=== PATIENT | male | born 1955 | race Caucasian/White ===

== ENCOUNTER 2018-06-28 10:47 | Inpatient (IN) | payer MEDICARE, MEDICAID ==
[~2018-06-28] VITALS: Ht 175.3 cm; Wt 94.0 kg
[2018-06-28] MEDS ORDERED: normal saline 1000ML IV soln IV ONE (12:15)
[2018-06-28] MEDS ORDERED: vancomycin/NS 1 GM ADD-VANTAGE 250 ML X 1 DOSE IV ONE (12:25)
[2018-06-28 13:15] LABS: ALANINE AMINOTRANSFERASE 20 U/L (12-78); ALBUMIN 2.9 G/DL (3.4-5.0); ALBUMIN/GLOBULIN RATIO 0.6 (1.1-1.5); ALKALINE PHOSPHATASE 79 IU/L (46-116); ANION GAP 10 (8-16); ASPARTATE AMINO TRANSFERASE 27 U/L (10-37); BILIRUBIN,TOTAL 0.5 MG/DL (0.1-1.0); BLOOD UREA NITROGEN 13 MG/DL (7-18); BUN/CREATININE RATIO 9.8 (5.4-32.0); C-REACTIVE PROTEIN 23.67 MG/DL (0.0-0.5); CALCIUM 9.1 MG/DL (8.5-10.1); CHLORIDE 95 MMOL/L (99-107); CREATININE 1.33 MG/DL (0.60-1.10); GLUCOSE 232 MG/DL (70-104); MAGNESIUM 1.7 MG/DL (1.5-2.4); POTASSIUM 3.7 MMOL/L (3.5-5.1); SODIUM 133 MMOL/L (135-145); TOTAL CARBON DIOXIDE 28.3 MMOL/L (24-32); TOTAL PROTEIN 7.9 G/DL (6.4-8.2); eGFR 55 ML/MIN
[2018-06-28 13:28] LABS: INR 1.1 INR; PROTHROMBIN TIME 11.2 SECONDS (9.0-12.0)
[2018-06-28 15:06] LABS: BASOPHILS % (AUTO) 0.4 % (0-1); EOSINOPHILS % (AUTO) 0 % (0-6); HEMATOCRIT 39.7 % (42.0-52.0); HEMOGLOBIN 13.3 g/dl (14.0-17.9); LYMPHOCYTES # (AUTO) 0.6 X10'3 (1.1-4.8); MEAN CORPUSCULAR HEMOGLOBIN 29.6 PG (27.0-31.0); MEAN CORPUSCULAR HGB CONC 33.4 g/dL (33.0-36.5); MEAN CORPUSCULAR VOLUME 88.6 FL (78-98); MEAN PLATELET VOLUME 7.9 FL (7.4-10.4); MONOCYTES # (AUTO) 0.5 X10'3 (0-0.9); MONOCYTES % (AUTO) 5.1 % (2-12); NEUTROPHILS # (AUTO) 8.2 X10'3 (1.8-7.7); NEUTROPHILS % (AUTO) 88.5 % (42-75); PLATELET COUNT 251 X10'3 (140-440); RED BLOOD COUNT 4.48 X10'6 (4.70-6.10); RED CELL DISTRIBUTION WIDTH 13.3 % (11.5-14.5); WHITE BLOOD COUNT 9.3 X10'3 (4.5-11.0)
[2018-06-28] MEDS ORDERED: OMEP40CA37 PO (15:27)
[2018-06-28] MEDS ORDERED: INSU100V9 SQ (15:27)
[2018-06-28] MEDS ORDERED: NOVRI SQ (15:27)
--- NOTE | 2018-06-28 16:10 | NUR ---
DR. PALM IN ROOM ASSESSING PATIENT FOR INPATIENT ADMISSION. DIET ORDER RECEIVED. PATIENT STATES HE IS FEELING HUNGRY.
[2018-06-28] MEDS: normal saline 1000ml 1,000 ML IV SCH (16:13)
[2018-06-28] MEDS ORDERED: HYDROcodone/acetaminophen 5mg/325mg tablet PO PRN (16:15)
[2018-06-28] MEDS ORDERED: glucagon, human recombinant 1mg kit SUBCUT PRN (16:15)
[2018-06-28] MEDS ORDERED: mag hydrox/Alum hydrox/simeth 30ml oral suspension PO PRN (16:15)
[2018-06-28] MEDS ORDERED: acetaminophen 325mg tablet PO PRN ×2 (16:15→23:35)
[2018-06-28] MEDS ORDERED: potassium Cl 20 mEq SR tablet PO PRN (16:15)
[2018-06-28] MEDS ORDERED: dextrose ORAL solution 15 GM/59 ML bottle PO PRN ×2 (16:15)
[2018-06-28] MEDS ORDERED: docusate sod 100mg capsule PO PRN (16:15)
[2018-06-28] MEDS ORDERED: potassium Cl 40MEQ/NS 500ml 500 ML IV PRN ×2 (16:15)
[2018-06-28] MEDS ORDERED: magnesium Cl slow-release 64mg tablet PO PRN (16:15)
[2018-06-28] MEDS ORDERED: magnesium 2GM in 50ml NS 50 ML IV PRN (16:15)
[2018-06-28] MEDS ORDERED: MESSAGE TO PHARMACY PO ONE (16:15)
[2018-06-28] MEDS ORDERED: dextrose 50%-water 50ml dispensing syringe IV PRN ×2 (16:15)
[2018-06-28] MEDS ORDERED: magnesium 4gm in 100ml NS 100 ML IV PRN (16:15)
[2018-06-28] MEDS ORDERED: morphine 4 MG/ML inj SYRINge IV PRN (16:15)
--- NOTE | 2018-06-28 16:15 | NUR ---
Report received from Daisha NORTH RN. Addendum: 06/28/18 at 1801 by Lacie Wood RN Time should be 2281
--- NOTE | 2018-06-28 16:20 | NUR ---
TOLERATED TURKEY SANDWICH WITH WATER AND RETAINED. NO DISTRESS NOTED AT PRESENT.
[2018-06-28] MEDS ORDERED: vancomycin inj 1,250 MG in normal saline 250ml IV soln 250 ML IV SCH (17:00)
--- NOTE | 2018-06-28 17:45 | NUR ---
Pt arrived to room 344B from ED
[2018-06-28 17:52] LABS: CLARITY,URINE CLEAR (Clear); COLOR,URINE YELLOW (Yellow); GLUCOSE, URINE 100 mg/dl (Neg); KETONES,URINE >=80 mg/dl (Neg); LEUKOCYTE ESTERASE ,URINE NEGATIVE (Neg); NITRITES, URINE NEGATIVE (Neg); OCCULT BLOOD,URINE NEGATIVE (Neg); PROTEIN,URINE 30 mg/dl (Neg); UROBILINOGEN,URINE 0.2 E.U/dL (0.2-1.0)
[2018-06-28 17:53] LABS: UA COLLECTION TYPE VOIDED
--- NOTE | 2018-06-28 18:00 | NUR ---
Problems reprioritized. Patient report given, questions answered & plan of care reviewed with EDE Squires.
--- NOTE | 2018-06-28 18:01 | NUR ---
Patient in room BELL 344. I have received report from EDE Medellin and had the opportunity to ask questions and assume patient care.
[2018-06-28 18:02] VITALS: BP 114/60
[2018-06-28 18:04] LABS: MUCUS STRANDS MODERATE /LPF (Neg); SQUAMOUS EPITHELIAL CELL,UR MODERATE /LPF (FEW)
[2018-06-28 18:05] LABS: COARSE GRANULAR CAST 0-3 /LPF (NEGATIVE); HYALINE CASTS 0-3 /LPF (NEGATIVE)
[2018-06-28 18:09] LABS: BACTERIA,URINE 1+ /HPF (Neg); RBC,URINE 0-2 /HPF (0-2); WBC,URINE 0-4 /HPF (0-4)
[2018-06-28 18:30] VITALS: BP 116/58
[2018-06-28] MEDS ORDERED: temazepam 15mg capsule PO PRN (21:00)
[2018-06-28] MEDS: insulin glargine (Lantus) pen - multi-dose SQ SCH (21:56)
[2018-06-28] MEDS: heparin, porcine 5000 units/ml vial SQ SCH (21:57)
[2018-06-29] MEDS ORDERED: vancomycin inj 1,250 MG in normal saline 250ml IV soln 250 ML IV SCH ×2
[2018-06-29] MEDS: acetaminophen 325mg tablet PO PRN ×2 (00:24→22:38)
[2018-06-29 01:15] VITALS: BP 130/60
[2018-06-29] MEDS: cefepime 1GM/NS ADD-VANTAGE 100 ML IV SCH ×3 (02:11→21:38)
[2018-06-29] MEDS: normal saline 1000ml 1,000 ML IV SCH ×3 (04:30→21:42)
[2018-06-29 05:40] LABS: BASOPHILS % (AUTO) 0.4 % (0-1); EOSINOPHILS % (AUTO) 0.1 % (0-6); HEMOGLOBIN 12.9 g/dl (14.0-17.9); LYMPHOCYTES # (AUTO) 1.1 X10'3 (1.1-4.8); LYMPHOCYTES % (AUTO) 12.6 % (21-51); MEAN CORPUSCULAR HEMOGLOBIN 29.8 PG (27.0-31.0); MEAN CORPUSCULAR HGB CONC 33.9 g/dL (33.0-36.5); MEAN CORPUSCULAR VOLUME 87.9 FL (78-98); MEAN PLATELET VOLUME 8.5 FL (7.4-10.4); MONOCYTES # (AUTO) 1.1 X10'3 (0-0.9); MONOCYTES % (AUTO) 11.6 % (2-12); NEUTROPHILS # (AUTO) 6.9 X10'3 (1.8-7.7); NEUTROPHILS % (AUTO) 75.3 % (42-75); PLATELET COUNT 256 X10'3 (140-440); RED BLOOD COUNT 4.32 X10'6 (4.70-6.10); WHITE BLOOD COUNT 9.1 X10'3 (4.5-11.0)
[2018-06-29 05:49] LABS: ALBUMIN 2.1 G/DL (3.4-5.0); ANION GAP 6 (8-16); BLOOD UREA NITROGEN 10 MG/DL (7-18); BUN/CREATININE RATIO 9.7 (5.4-32.0); CALCIUM 8.3 MG/DL (8.5-10.1); CHLORIDE 101 MMOL/L (99-107); CREATININE 1.03 MG/DL (0.60-1.10); GLUCOSE 185 MG/DL (70-104); MAGNESIUM 1.7 MG/DL (1.5-2.4); POTASSIUM 3.1 MMOL/L (3.5-5.1); SODIUM 135 MMOL/L (135-145); TOTAL CARBON DIOXIDE 27.6 MMOL/L (24-32); eGFR 73 ML/MIN
--- NOTE | 2018-06-29 06:02 | NUR ---
Problems reprioritized. Patient report given, questions answered & plan of care reviewed with EDE Medellin.
--- NOTE | 2018-06-29 06:05 | NUR ---
Patient in room BELL 344. I have received report from EDE Squires and had the opportunity to ask questions and assume patient care.
[2018-06-29 06:30] VITALS: BP 136/58
[2018-06-29] MEDS: K and/or MAG REPLACEMENT MC SCH (06:52)
[2018-06-29] MEDS: heparin, porcine 5000 units/ml vial SQ SCH ×2 (07:41→21:40)
[2018-06-29] MEDS: potassium Cl 20 mEq SR tablet PO PRN ×3 (07:58→16:39)
[2018-06-29] MEDS: vancomycin/NS 1 GM ADD-VANTAGE 250 ML IV SCH ×3 (08:23→23:48)
[2018-06-29] MEDS: insulin Lispro (HumaLOG) vial - multi-dose SQ SCH ×3 (08:27→19:22)
[2018-06-29 11:00] VITALS: BP 111/57
[2018-06-29] MEDS: magnesium hydroxide 30ml (MOM) UD suspension PO PRN (12:31)
--- NOTE | 2018-06-29 15:50 | NUR ---
DM consult: pt with A1c 11.0. Attempted visit with pt at bedside however pt was unavailable. Pt admit with sepsis secondary to foot infection. Will f/u with pt to provide protein and DM education prior to d/c. Per H&P pt hasn't been taking DM meds x 3 months but was on insulin, doesn't follow a DM diet, and has no PCP; social welfare clerk have been consulted. Pt currently on a CHO controlled diet with documented PO intake 100% meeting nutrient needs with adequate protein to aid in wound healing. LBM 06/25, pt with MoM PRN first dose given 06/29. Will continue to follow. Recommendations: 1) Continue with CHO controlled diet 2) Monitor need for ONS or double protein 3) Protein and DM ed prior to d/c 4) Monitor need for additional bowel care 5) Wt per rx Addendum: 06/29/18 at [address] Amended: Links added.
--- NOTE | 2018-06-29 17:30 | NUR ---
Problems reprioritized. Patient report given, questions answered & plan of care reviewed with EDE Iqabl.
--- NOTE | 2018-06-29 18:30 | NUR ---
Patient in room BELL 344. I have received report from RHEA and had the opportunity to ask questions and assume patient care.
[2018-06-29 19:00] VITALS: BP 150/66
[2018-06-29] MEDS: HYDROcodone/acetaminophen 10/325mg tab PO PRN ×2 (19:24→23:49)
[2018-06-29] MEDS: insulin glargine (Lantus) pen - multi-dose SQ SCH (21:00)
[2018-06-29 22:30] VITALS: BP 139/67
[2018-06-30] MEDS: HYDROcodone/acetaminophen 10/325mg tab PO PRN ×4 (04:32→20:15)
--- NOTE | 2018-06-30 06:00 | NUR ---
Patient in room BELL 344. I have received report from EDE Iqbal and had the opportunity to ask questions and assume patient care.
--- NOTE | 2018-06-30 06:17 | NUR ---
Problems reprioritized. Patient report given, questions answered & plan of care reviewed with RHEA.
[2018-06-30 06:30] VITALS: BP 132/66
[2018-06-30] MEDS ORDERED: VANCOMYCIN LEVEL IV NR (07:30)
[2018-06-30] MEDS: cefepime 1GM/NS ADD-VANTAGE 100 ML IV SCH (07:49)
[2018-06-30] MEDS: heparin, porcine 5000 units/ml vial SQ SCH ×2 (07:50→20:03)
[2018-06-30] MEDS: K and/or MAG REPLACEMENT MC SCH (08:00)
[2018-06-30] MEDS: normal saline 1000ml 1,000 ML IV SCH ×2 (08:13→10:35)
[2018-06-30 08:35] LABS: BASOPHILS % (AUTO) 0.3 % (0-1); EOSINOPHILS % (AUTO) 0.2 % (0-6); HEMATOCRIT 37.2 % (42.0-52.0); HEMOGLOBIN 12.5 g/dl (14.0-17.9); LYMPHOCYTES % (AUTO) 9.8 % (21-51); MEAN CORPUSCULAR HEMOGLOBIN 29.7 PG (27.0-31.0); MEAN CORPUSCULAR HGB CONC 33.7 g/dL (33.0-36.5); MEAN CORPUSCULAR VOLUME 88.3 FL (78-98); MEAN PLATELET VOLUME 8.4 FL (7.4-10.4); MONOCYTES # (AUTO) 0.8 X10'3 (0-0.9); MONOCYTES % (AUTO) 7.7 % (2-12); NEUTROPHILS # (AUTO) 8.3 X10'3 (1.8-7.7); PLATELET COUNT 250 X10'3 (140-440); RED BLOOD COUNT 4.21 X10'6 (4.70-6.10); WHITE BLOOD COUNT 10.1 X10'3 (4.5-11.0)
[2018-06-30 08:46] LABS: ALBUMIN 1.9 G/DL (3.4-5.0); ANION GAP 5 (8-16); BLOOD UREA NITROGEN 6 MG/DL (7-18); BUN/CREATININE RATIO 6.2 (5.4-32.0); CHLORIDE 98 MMOL/L (99-107); CREATININE 0.97 MG/DL (0.60-1.10); GLUCOSE 209 MG/DL (70-104); MAGNESIUM 1.8 MG/DL (1.5-2.4); POTASSIUM 3.5 MMOL/L (3.5-5.1); SODIUM 132 MMOL/L (135-145); TOTAL CARBON DIOXIDE 29.4 MMOL/L (24-32); eGFR 79 ML/MIN
--- NOTE | 2018-06-30 09:30 | NUR ---
Paged Dr Bojorquez RE:insulin dosing. Awaiting return call.
[2018-06-30] MEDS ORDERED: vancomycin inj 1,250 MG in normal saline 250ml IV soln 250 ML IV SCH (10:00)
[2018-06-30] MEDS: insulin Lispro (HumaLOG) vial - multi-dose SQ SCH ×3 (10:18→18:55)
[2018-06-30] MEDS: magnesium hydroxide 30ml (MOM) UD suspension PO PRN (10:39)
[2018-06-30 11:00] VITALS: BP 127/72
[2018-06-30] MEDS ORDERED: VANCOMYCIN LEVEL IV ONE (11:30)
[2018-06-30] MEDS: CefTRIAXone 2gm/D5W 50ml 50 ML IV SCH (11:42)
[2018-06-30] MEDS: metroNIDAZOLE-Flagyl 500mg/NS 100 ML IV SCH ×2 (12:17→16:22)
--- NOTE | 2018-06-30 18:30 | NUR ---
Patient in room BELL 344. I have received report from EDE Medellin and had the opportunity to ask questions and assume patient care.
--- NOTE | 2018-06-30 18:41 | NUR ---
Problems reprioritized. Patient report given, questions answered & plan of care reviewed with EDE Marie.
[2018-06-30 20:00] VITALS: BP 131/68
[2018-06-30] MEDS: lactobacillus rhamnosus 10,000 MMU CELLS/CAPSULE PO SCH (20:02)
[2018-06-30] MEDS: insulin glargine (Lantus) pen - multi-dose SQ SCH (21:30)
[2018-07-01] VITALS: BP 130/64
[2018-07-01] MEDS: normal saline 1000ml 1,000 ML IV SCH ×2 (00:05→15:19)
[2018-07-01] MEDS: metroNIDAZOLE-Flagyl 500mg/NS 100 ML IV SCH ×3 (00:06→15:17)
[2018-07-01] MEDS: HYDROcodone/acetaminophen 10/325mg tab PO PRN ×5 (00:12→20:48)
[2018-07-01 04:41] LABS: ALBUMIN 1.9 G/DL (3.4-5.0); ANION GAP 6 (8-16); BLOOD UREA NITROGEN 8 MG/DL (7-18); BUN/CREATININE RATIO 7.9 (5.4-32.0); CALCIUM 8.4 MG/DL (8.5-10.1); CHLORIDE 102 MMOL/L (99-107); CREATININE 1.01 MG/DL (0.60-1.10); GLUCOSE 89 MG/DL (70-104); POTASSIUM 3.4 MMOL/L (3.5-5.1); SODIUM 138 MMOL/L (135-145); TOTAL CARBON DIOXIDE 30.3 MMOL/L (24-32); eGFR 75 ML/MIN
[2018-07-01 04:50] LABS: BASOPHILS # (AUTO) 0.1 X10'3 (0-0.2); BASOPHILS % (AUTO) 0.6 % (0-1); EOSINOPHILS % (AUTO) 0.4 % (0-6); HEMATOCRIT 37.1 % (42.0-52.0); HEMOGLOBIN 12.4 g/dl (14.0-17.9); LYMPHOCYTES # (AUTO) 1.1 X10'3 (1.1-4.8); LYMPHOCYTES % (AUTO) 13.2 % (21-51); MEAN CORPUSCULAR HEMOGLOBIN 29.3 PG (27.0-31.0); MEAN CORPUSCULAR HGB CONC 33.4 g/dL (33.0-36.5); MEAN CORPUSCULAR VOLUME 87.9 FL (78-98); MEAN PLATELET VOLUME 8.5 FL (7.4-10.4); MONOCYTES # (AUTO) 0.7 X10'3 (0-0.9); MONOCYTES % (AUTO) 8.2 % (2-12); NEUTROPHILS # (AUTO) 6.5 X10'3 (1.8-7.7); NEUTROPHILS % (AUTO) 77.6 % (42-75); PLATELET COUNT 275 X10'3 (140-440); RED BLOOD COUNT 4.22 X10'6 (4.70-6.10); RED CELL DISTRIBUTION WIDTH 13.4 % (11.5-14.5); WHITE BLOOD COUNT 8.4 X10'3 (4.5-11.0)
--- NOTE | 2018-07-01 06:26 | NUR ---
Problems reprioritized. Patient report given, questions answered & plan of care reviewed with EDE Cooper.
[2018-07-01 07:00] VITALS: BP 115/64
[2018-07-01] MEDS: K and/or MAG REPLACEMENT MC SCH (08:00)
[2018-07-01] MEDS: insulin Lispro (HumaLOG) vial - multi-dose SQ SCH ×2 (08:37→19:12)
[2018-07-01] MEDS: potassium Cl 20 mEq SR tablet PO PRN ×2 (08:38→12:18)
[2018-07-01] MEDS: heparin, porcine 5000 units/ml vial SQ SCH ×2 (08:38→20:48)
[2018-07-01] MEDS: lactobacillus rhamnosus 10,000 MMU CELLS/CAPSULE PO SCH ×2 (08:38→20:47)
[2018-07-01] MEDS ORDERED: VANCOMYCIN LEVEL IV ONE (09:30)
[2018-07-01] MEDS: CefTRIAXone 2gm/D5W 50ml 50 ML IV SCH (09:45)
--- NOTE | 2018-07-01 10:04 | NUR ---
Dr Bojorquez on the floor he is aware that patient wanted him to adjust his Lantus for NOC medication. Dr Bojorquez did change dose yesterday to 10 units HS would like to keep it at that level. Per Dr Bojorquez Changed right foot stump wound dressing PRN with Opti dressing. Dr Bojorquez also aware replacing patient K+ level 3.4 per protocol
[2018-07-01 12:00] VITALS: BP 130/72
[2018-07-01] MEDS ORDERED: gadopentetate dimeglumine 10 MMOL/20 ML syringe IV ONE (12:26)
--- NOTE | 2018-07-01 13:00 | NUR ---
Patient refused his afternoon Insulin.
[2018-07-01] MEDS ORDERED: cyclobenzaprine 10mg tablet PO ONE (14:00)
--- NOTE | 2018-07-01 15:28 | NUR ---
Reassessment: Pt seen at bedside given written and verbal protein and DM education with referral to outpatient DM class and RD contact information. Pt states he hasn't been managing his DM lately d/t feeling the need to take care of his family rather than himself. Informed the pt of consequences of not taking care of DM including prolonged wound healing. Pt endorses a low appetite despite documented PO intake 100% throughout LOS meeting nutrient needs. Pt agreeable to double protein TID to provide additional protein to aid in wound healing, d/w dietary. Pt reports no food allergies and states some difficulty chewing d/t missing teeth however denies texture modification at this time. Pt states he is constipated with LBM 06/29 which was small per pt. Pt receiving MoM PRN received 06/29 and 06/30, pt agreeable to prune juice at dinner, d/w dietary. Will remain available. Recommendations: 1) Continue with CHO controlled diet 2) Double protein TID 3) Monitor need for additional bowel care 4) Wt per rx Addendum: 07/01/18 at [address] Amended: Links added.
--- NOTE | 2018-07-01 16:02 | NUR ---
Spoke to Dr Bojorquez regarding patient wanting a suppository due to only having a small bowel movement on 06/29. Received orders for Dulcolax suppository x1. Dr Bojorquez aware that patient states he feels like he has a urinary tract infection. Per Dr Bojorquez no need to send sample patient is on Rocephin. Also informed Dr Bojorquez that Dr Corbin stated Dr Gusman should be contacted regarding patients foot wound. Dr Bojorquez will leave message for Dr Gusman.
[2018-07-01] MEDS ORDERED: bisacodyl 10mg suppository rectal RC STA (18:01)
--- NOTE | 2018-07-01 18:57 | NUR ---
Problems reprioritized. Patient report given, questions answered & plan of care reviewed with Nella Fontenot RN.
[2018-07-01 19:00] VITALS: BP 143/74
[2018-07-01] MEDS ORDERED: potassium Cl 20 mEq SR tablet PO PRN ×2 (19:50)
[2018-07-01] MEDS ORDERED: potassium Cl 40MEQ/NS 500ml 500 ML IV PRN ×2 (19:50)
[2018-07-01] MEDS ORDERED: magnesium 4gm in 100ml NS 100 ML IV PRN (19:50)
[2018-07-01] MEDS ORDERED: magnesium Cl slow-release 64mg tablet PO PRN (19:50)
[2018-07-01] MEDS: insulin glargine (Lantus) pen - multi-dose SQ SCH ×2 (20:51→21:00)
[2018-07-02] VITALS: BP 132/69
[2018-07-02] MEDS: metroNIDAZOLE-Flagyl 500mg/NS 100 ML IV SCH ×2 (00:30→07:11)
[2018-07-02] MEDS: normal saline 1000ml 1,000 ML IV SCH ×2 (00:31→10:13)
[2018-07-02 04:38] LABS: BASOPHILS % (AUTO) 0.4 % (0-1); EOSINOPHILS # (AUTO) 0.1 X10'3 (0-0.9); EOSINOPHILS % (AUTO) 1.4 % (0-6); HEMATOCRIT 36.1 % (42.0-52.0); LYMPHOCYTES # (AUTO) 1.1 X10'3 (1.1-4.8); LYMPHOCYTES % (AUTO) 16.6 % (21-51); MEAN CORPUSCULAR HEMOGLOBIN 29.3 PG (27.0-31.0); MEAN CORPUSCULAR HGB CONC 33.2 g/dL (33.0-36.5); MEAN CORPUSCULAR VOLUME 88.2 FL (78-98); MEAN PLATELET VOLUME 7.9 FL (7.4-10.4); MONOCYTES # (AUTO) 0.5 X10'3 (0-0.9); MONOCYTES % (AUTO) 7.9 % (2-12); NEUTROPHILS % (AUTO) 73.7 % (42-75); PLATELET COUNT 327 X10'3 (140-440); RED BLOOD COUNT 4.09 X10'6 (4.70-6.10); RED CELL DISTRIBUTION WIDTH 13.9 % (11.5-14.5); WHITE BLOOD COUNT 6.8 X10'3 (4.5-11.0)
[2018-07-02 04:42] LABS: ALBUMIN 1.8 G/DL (3.4-5.0); ANION GAP 7 (8-16); BLOOD UREA NITROGEN 8 MG/DL (7-18); BUN/CREATININE RATIO 8.2 (5.4-32.0); CALCIUM 8.5 MG/DL (8.5-10.1); CHLORIDE 101 MMOL/L (99-107); CREATININE 0.97 MG/DL (0.60-1.10); GLUCOSE 113 MG/DL (70-104); MAGNESIUM 1.9 MG/DL (1.5-2.4); POTASSIUM 4.2 MMOL/L (3.5-5.1); SODIUM 139 MMOL/L (135-145); TOTAL CARBON DIOXIDE 31.4 MMOL/L (24-32); eGFR 79 ML/MIN
--- NOTE | 2018-07-02 06:29 | NUR ---
Patient in room BELL 344. I have received report from Princess REYEZ and had the opportunity to ask questions and assume patient care.
--- NOTE | 2018-07-02 06:53 | NUR ---
Problems reprioritized. Patient report given, questions answered & plan of care reviewed with EDE Castellanos.
[2018-07-02] MEDS: HYDROcodone/acetaminophen 10/325mg tab PO PRN ×5 (07:11→23:20)
[2018-07-02] MEDS: lactobacillus rhamnosus 10,000 MMU CELLS/CAPSULE PO SCH ×2 (07:11→19:20)
[2018-07-02] MEDS: heparin, porcine 5000 units/ml vial SQ SCH ×2 (07:12→19:20)
[2018-07-02 07:24] VITALS: BP 142/77
[2018-07-02] MEDS: K and/or MAG REPLACEMENT MC SCH (08:00)
[2018-07-02] MEDS: CefTRIAXone 2gm/D5W 50ml 50 ML IV SCH (08:00)
[2018-07-02] MEDS: insulin Lispro (HumaLOG) vial - multi-dose SQ SCH ×3 (08:49→19:18)
[2018-07-02] MEDS: magnesium hydroxide 30ml (MOM) UD suspension PO PRN (08:51)
[2018-07-02 12:00] VITALS: BP 138/74
[2018-07-02] MEDS: metroNIDAZOLE 500mg tablet PO SCH ×2 (17:07→23:19)
[2018-07-02] MEDS ORDERED: bisacodyl 10mg suppository rectal RC PRN (18:05)
--- NOTE | 2018-07-02 18:40 | NUR ---
Problems reprioritized. Patient report given, questions answered & plan of care reviewed with Paula Fontenot RN.
--- NOTE | 2018-07-02 19:56 | NUR ---
Pt unable to have BM. Does not want daily suppository as it produced no BM last nigh. Req enema. Received order from for enema x1.
[2018-07-02 20:00] VITALS: BP 128/64
[2018-07-02] MEDS: insulin glargine (Lantus) pen - multi-dose SQ SCH (21:00)
--- NOTE | 2018-07-02 22:02 | NUR ---
Enema administered. PT up to BSC.
--- NOTE | 2018-07-02 22:29 | NUR ---
Pt continues to refuse Lantus as he does not like his blood glucose to drop below 110. Advised patient of risk of higher blood sugar levels.
--- NOTE | 2018-07-02 22:41 | NUR ---
Small hard BM after enema. Provided joyce moise.
[2018-07-03] VITALS: BP 117/58
--- NOTE | 2018-07-03 00:18 | NUR ---
hydrophilic replaced on coccyx, placed hydrophilic on bilat heels.
[2018-07-03] MEDS: HYDROcodone/acetaminophen 10/325mg tab PO PRN ×5 (04:20→23:04)
[2018-07-03 05:13] LABS: BASOPHILS % (AUTO) 0.6 % (0-1); EOSINOPHILS # (AUTO) 0.1 X10'3 (0-0.9); EOSINOPHILS % (AUTO) 1.8 % (0-6); HEMATOCRIT 36.8 % (42.0-52.0); HEMOGLOBIN 12.1 g/dl (14.0-17.9); LYMPHOCYTES # (AUTO) 1.3 X10'3 (1.1-4.8); LYMPHOCYTES % (AUTO) 19.2 % (21-51); MEAN CORPUSCULAR HEMOGLOBIN 29.2 PG (27.0-31.0); MEAN CORPUSCULAR HGB CONC 32.9 g/dL (33.0-36.5); MEAN CORPUSCULAR VOLUME 88.7 FL (78-98); MEAN PLATELET VOLUME 7.9 FL (7.4-10.4); MONOCYTES # (AUTO) 0.5 X10'3 (0-0.9); NEUTROPHILS # (AUTO) 4.7 X10'3 (1.8-7.7); NEUTROPHILS % (AUTO) 70.4 % (42-75); PLATELET COUNT 442 X10'3 (140-440); RED BLOOD COUNT 4.15 X10'6 (4.70-6.10); RED CELL DISTRIBUTION WIDTH 13.7 % (11.5-14.5); WHITE BLOOD COUNT 6.7 X10'3 (4.5-11.0)
[2018-07-03 05:28] LABS: ALBUMIN 1.9 G/DL (3.4-5.0); ANION GAP 7 (8-16); BLOOD UREA NITROGEN 10 MG/DL (7-18); BUN/CREATININE RATIO 9.6 (5.4-32.0); CALCIUM 8.8 MG/DL (8.5-10.1); CHLORIDE 99 MMOL/L (99-107); CREATININE 1.04 MG/DL (0.60-1.10); GLUCOSE 218 MG/DL (70-104); MAGNESIUM 2.3 MG/DL (1.5-2.4); POTASSIUM 4.4 MMOL/L (3.5-5.1); SODIUM 138 MMOL/L (135-145); TOTAL CARBON DIOXIDE 31.9 MMOL/L (24-32); eGFR 73 ML/MIN
--- NOTE | 2018-07-03 06:17 | NUR ---
Problems reprioritized. Patient report given, questions answered & plan of care reviewed with EDE Castellanos.
--- NOTE | 2018-07-03 06:45 | NUR ---
Patient in room BELL 344. I have received report from EDE Mitchell and had the opportunity to ask questions and assume patient care.
[2018-07-03] MEDS: CefTRIAXone 2gm/D5W 50ml 50 ML IV SCH (07:05)
[2018-07-03] MEDS: K and/or MAG REPLACEMENT MC SCH (07:06)
[2018-07-03] MEDS: metroNIDAZOLE 500mg tablet PO SCH ×2 (07:06→15:49)
[2018-07-03] MEDS: lactobacillus rhamnosus 10,000 MMU CELLS/CAPSULE PO SCH ×2 (07:06→21:40)
[2018-07-03] MEDS: heparin, porcine 5000 units/ml vial SQ SCH ×2 (07:06→21:41)
[2018-07-03 07:31] VITALS: BP 145/80
[2018-07-03] MEDS: insulin Lispro (HumaLOG) vial - multi-dose SQ SCH ×2 (08:41→13:27)
[2018-07-03 11:00] VITALS: BP 101/65
[2018-07-03] MEDS ORDERED: ringers solution, lacted 1,000 ML IV ONE (17:16)
[2018-07-03 18:00] VITALS: BP 129/64
--- NOTE | 2018-07-03 18:39 | NUR ---
Problems reprioritized. Patient report given, questions answered & plan of care reviewed with EED WELCH.
--- NOTE | 2018-07-03 18:40 | NUR ---
Patient in room BELL 344. I have received report from EDE Castellanos and had the opportunity to ask questions and assume patient care.
[2018-07-03] MEDS: polyethylene glycol 3350 17gm powd pack PO SCH (21:40)
[2018-07-03] MEDS: docusate sod 100mg capsule PO SCH (21:40)
[2018-07-03] MEDS: insulin glargine (Lantus) pen - multi-dose SQ SCH (21:45)
[2018-07-04] VITALS: BP 138/79
[2018-07-04] MEDS: metroNIDAZOLE 500mg tablet PO SCH ×4 (00:47→23:38)
[2018-07-04] MEDS: HYDROcodone/acetaminophen 10/325mg tab PO PRN ×3 (02:36→23:38)
[2018-07-04 04:57] LABS: BASOPHILS # (AUTO) 0.1 X10'3 (0-0.2); BASOPHILS % (AUTO) 0.8 % (0-1); EOSINOPHILS # (AUTO) 0.2 X10'3 (0-0.9); EOSINOPHILS % (AUTO) 2.5 % (0-6); HEMOGLOBIN 12.7 g/dl (14.0-17.9); LYMPHOCYTES # (AUTO) 1.3 X10'3 (1.1-4.8); LYMPHOCYTES % (AUTO) 17.4 % (21-51); MEAN CORPUSCULAR HEMOGLOBIN 29.6 PG (27.0-31.0); MEAN CORPUSCULAR HGB CONC 33.4 g/dL (33.0-36.5); MEAN CORPUSCULAR VOLUME 88.7 FL (78-98); MEAN PLATELET VOLUME 7.6 FL (7.4-10.4); MONOCYTES # (AUTO) 0.7 X10'3 (0-0.9); MONOCYTES % (AUTO) 9.4 % (2-12); NEUTROPHILS # (AUTO) 5.2 X10'3 (1.8-7.7); NEUTROPHILS % (AUTO) 69.9 % (42-75); PLATELET COUNT 485 X10'3 (140-440); RED BLOOD COUNT 4.28 X10'6 (4.70-6.10); RED CELL DISTRIBUTION WIDTH 13.9 % (11.5-14.5); WHITE BLOOD COUNT 7.5 X10'3 (4.5-11.0)
[2018-07-04 05:11] LABS: MAGNESIUM 1.9 MG/DL (1.5-2.4); POTASSIUM 4.2 MMOL/L (3.5-5.1)
[2018-07-04 05:23] LABS: ALANINE AMINOTRANSFERASE 43 U/L (12-78); ALBUMIN/GLOBULIN RATIO 0.4 (1.1-1.5); ALKALINE PHOSPHATASE 199 IU/L (46-116); ANION GAP 5 (8-16); ASPARTATE AMINO TRANSFERASE 36 U/L (10-37); BILIRUBIN,TOTAL 0.2 MG/DL (0.1-1.0); BLOOD UREA NITROGEN 14 MG/DL (7-18); BUN/CREATININE RATIO 11.8 (5.4-32.0); CALCIUM 8.4 MG/DL (8.5-10.1); CHLORIDE 99 MMOL/L (99-107); CREATININE 1.19 MG/DL (0.60-1.10); GLUCOSE 246 MG/DL (70-104); POTASSIUM 4.2 MMOL/L (3.5-5.1); SODIUM 136 MMOL/L (135-145); TOTAL CARBON DIOXIDE 31.9 MMOL/L (24-32); TOTAL PROTEIN 6.7 G/DL (6.4-8.2); eGFR 62 ML/MIN
[2018-07-04] MEDS ORDERED: famotidine 20mg tablet PO ONE (06:00)
--- NOTE | 2018-07-04 06:05 | NUR ---
Patient in room BELL 344. I have received report from Shaw MERA and had the opportunity to ask questions and assume patient care.
--- NOTE | 2018-07-04 06:40 | NUR ---
Problems reprioritized. Patient report given, questions answered & plan of care reviewed with EDE Moss.
--- NOTE | 2018-07-04 06:44 | NUR ---
Patient in room BELL 344. I have received report from Shaw MERA and had the opportunity to ask questions and assume patient care.
[2018-07-04] MEDS: K and/or MAG REPLACEMENT MC SCH (08:00)
--- NOTE | 2018-07-04 08:00 | NUR ---
Patient was given breakfast tray this morning in which he ate 100% of the meal. Patient states that he assumed that he would not be having the surgery today since he was given a meal tray. NPO sign was on the outside of the door. Dr. Gusman was informed and is aware. Patient will need to be rescheduled for surgery on Saturday. Dr. Gusman states that he will come in and see patient today.
[2018-07-04] MEDS: CefTRIAXone 2gm/D5W 50ml 50 ML IV SCH (08:02)
[2018-07-04] MEDS: docusate sod 100mg capsule PO SCH ×2 (08:32→21:43)
[2018-07-04] MEDS: lactobacillus rhamnosus 10,000 MMU CELLS/CAPSULE PO SCH ×2 (08:32→21:43)
[2018-07-04] MEDS: heparin, porcine 5000 units/ml vial SQ SCH ×2 (08:36→21:43)
--- NOTE | 2018-07-04 09:45 | NUR ---
Student documentation: I have reviewed and agree with all interventions, assessments performed and documented by Karlye DOMÍNGUEZ from [facility]. Student Medication Administration: For this medication-pass time frame from 0600 to 1800, all medication were reviewed, dispensed, administered and documented per hospital policy by Karley DOMÍNGUEZ.
[2018-07-04 12:00] VITALS: BP 97/58
[2018-07-04] MEDS: insulin Lispro (HumaLOG) vial - multi-dose SQ SCH ×2 (12:49→18:54)
--- NOTE | 2018-07-04 12:51 | NUR ---
Insulin given under Allyssa DOMÍNGUEZ from [facility], 2 RN check completed with Meagan RN and Isa RN. Coverage for lunch completed with coverage of Accu check of 310 only for a total of 19u Humalog. Critical thinking of coverage of 35u Humalog would be too much for patient. Will check accucheck in a few hours since patient has not received this amount of insulin except for a few times looking back on patients trend.
[2018-07-04 18:00] VITALS: BP 128/71
--- NOTE | 2018-07-04 18:04 | NUR ---
Problems reprioritized. Patient report given, questions answered & plan of care reviewed with Shaw MERA.
--- NOTE | 2018-07-04 18:05 | NUR ---
Patient in room BELL 347. I have received report from EDE Moss and had the opportunity to ask questions and assume patient care.
[2018-07-04] MEDS: insulin glargine (Lantus) pen - multi-dose SQ SCH (21:46)
[2018-07-04] MEDS: polyethylene glycol 3350 17gm powd pack PO SCH (21:46)
[2018-07-05] VITALS: BP 116/66
[2018-07-05] MEDS: HYDROcodone/acetaminophen 10/325mg tab PO PRN ×4 (04:00→21:36)
--- NOTE | 2018-07-05 06:25 | NUR ---
Problems reprioritized. Patient report given, questions answered & plan of care reviewed with EDE Moss.
--- NOTE | 2018-07-05 06:46 | NUR ---
Patient in room BELL 347. I have received report from Shaw MERA and had the opportunity to ask questions and assume patient care.
--- NOTE | 2018-07-05 06:59 | NUR ---
Reassessment at 0500 not completed by NOC shift.
[2018-07-05] MEDS: docusate sod 100mg capsule PO SCH ×2 (07:15→20:25)
[2018-07-05] MEDS: CefTRIAXone 2gm/D5W 50ml 50 ML IV SCH (07:15)
[2018-07-05] MEDS: metroNIDAZOLE 500mg tablet PO SCH ×2 (07:15→17:12)
[2018-07-05] MEDS: lactobacillus rhamnosus 10,000 MMU CELLS/CAPSULE PO SCH ×2 (07:15→20:25)
[2018-07-05] MEDS: heparin, porcine 5000 units/ml vial SQ SCH ×2 (07:15→20:27)
[2018-07-05] MEDS: K and/or MAG REPLACEMENT MC SCH (07:16)
[2018-07-05] MEDS: magnesium hydroxide 30ml (MOM) UD suspension PO PRN (07:25)
[2018-07-05 07:48] LABS: MAGNESIUM 2.3 MG/DL (1.5-2.4); POTASSIUM 4.5 MMOL/L (3.5-5.1)
[2018-07-05 08:20] VITALS: BP 142/77
--- NOTE | 2018-07-05 08:33 | NUR ---
Covering patient at a level 4 instead of a level 5 per patients request. Patient states that 26u if coverage would be to much for him but 19 will be ok. Looking at patients trend he seems to be doing ok on Level 4.
[2018-07-05] MEDS: insulin Lispro (HumaLOG) vial - multi-dose SQ SCH ×3 (08:37→19:14)
[2018-07-05] MEDS ORDERED: magnesium hydroxide 30ml (MOM) UD suspension PO ONE (11:40)
[2018-07-05] MEDS ORDERED: bisacodyl 10mg suppository rectal RC PRN (11:40)
[2018-07-05 12:20] VITALS: BP 122/71
[2018-07-05 12:46] LABS: ALANINE AMINOTRANSFERASE 54 U/L (12-78); ALBUMIN 2.1 G/DL (3.4-5.0); ALBUMIN/GLOBULIN RATIO 0.4 (1.1-1.5); ALKALINE PHOSPHATASE 177 IU/L (46-116); ANION GAP 6 (8-16); ASPARTATE AMINO TRANSFERASE 46 U/L (10-37); BLOOD UREA NITROGEN 16 MG/DL (7-18); BUN/CREATININE RATIO 14.7 (5.4-32.0); CALCIUM 8.8 MG/DL (8.5-10.1); CHLORIDE 99 MMOL/L (99-107); CREATININE 1.09 MG/DL (0.60-1.10); GLUCOSE 213 MG/DL (70-104); POTASSIUM 4.1 MMOL/L (3.5-5.1); SODIUM 136 MMOL/L (135-145); TOTAL CARBON DIOXIDE 31.3 MMOL/L (24-32); TOTAL PROTEIN 6.8 G/DL (6.4-8.2); eGFR 69 ML/MIN
[2018-07-05 12:49] LABS: BILIRUBIN,TOTAL 0.1 MG/DL (0.1-1.0)
--- NOTE | 2018-07-05 18:30 | NUR ---
Patient in room BELL 355. I have received report from RODOLFO MERA and had the opportunity to ask questions and assume patient care.
[2018-07-05 20:00] VITALS: BP 113/78
[2018-07-05] MEDS: polyethylene glycol 3350 17gm powd pack PO SCH (20:30)
[2018-07-05] MEDS ORDERED: polyethylene glycol 3350 17gm powd pack PO SCH (21:00)
[2018-07-05] MEDS: insulin glargine (Lantus) pen - multi-dose SQ SCH (21:34)
[2018-07-06] VITALS: BP 112/52
[2018-07-06] MEDS ORDERED: acetaminophen 325mg tablet PO PRN (00:25)
[2018-07-06] MEDS: metroNIDAZOLE 500mg tablet PO SCH ×3 (00:55→16:40)
--- NOTE | 2018-07-06 06:30 | NUR ---
Problems reprioritized. Patient report given, questions answered & plan of care reviewed with SARAH MERA.
--- NOTE | 2018-07-06 06:30 | NUR ---
Patient in room BELL 355. I have received report from Dinorah Copeland RN and had the opportunity to ask questions and assume patient care. Patient in bed resting, bed low locked call light in reach
[2018-07-06 06:47] LABS: MEAN CORPUSCULAR HGB CONC 33.2 g/dL (33.0-36.5); MEAN PLATELET VOLUME 7.5 FL (7.4-10.4); WHITE BLOOD COUNT 8.1 X10'3 (4.5-11.0)
[2018-07-06 06:48] LABS: HEMATOCRIT 39.3 % (42.0-52.0); MEAN CORPUSCULAR HEMOGLOBIN 29.2 PG (27.0-31.0); MEAN CORPUSCULAR VOLUME 88.1 FL (78-98); PLATELET COUNT 662 X10'3 (140-440); RED BLOOD COUNT 4.46 X10'6 (4.70-6.10)
[2018-07-06 07:01] LABS: ALBUMIN 2.3 G/DL (3.4-5.0); ANION GAP 2 (8-16); BLOOD UREA NITROGEN 18 MG/DL (7-18); BUN/CREATININE RATIO 14.9 (5.4-32.0); CALCIUM 8.8 MG/DL (8.5-10.1); CHLORIDE 99 MMOL/L (99-107); CREATININE 1.21 MG/DL (0.60-1.10); GLUCOSE 256 MG/DL (70-104); POTASSIUM 4.6 MMOL/L (3.5-5.1); SODIUM 135 MMOL/L (135-145); TOTAL CARBON DIOXIDE 34.1 MMOL/L (24-32); eGFR 61 ML/MIN
[2018-07-06 07:30] VITALS: BP 130/74
[2018-07-06] MEDS: lactobacillus rhamnosus 10,000 MMU CELLS/CAPSULE PO SCH ×2 (07:32→19:15)
[2018-07-06] MEDS: docusate sod 100mg capsule PO SCH ×2 (07:32→19:15)
[2018-07-06] MEDS: CefTRIAXone 2gm/D5W 50ml 50 ML IV SCH (07:33)
[2018-07-06] MEDS: heparin, porcine 5000 units/ml vial SQ SCH (07:33)
[2018-07-06] MEDS: K and/or MAG REPLACEMENT MC SCH (08:00)
[2018-07-06] MEDS: insulin Lispro (HumaLOG) vial - multi-dose SQ SCH ×3 (08:55→19:13)
[2018-07-06 11:30] VITALS: BP 127/70
[2018-07-06] MEDS: methylnaltrexone br 12mg/0.6ml inj***SubQ only SQ SCH (14:45)
--- NOTE | 2018-07-06 14:58 | NUR ---
Reassessment: Pt PO 100% carb controlled meals meeting needs. LBM 07/05. GLU 288 today w/ insulin level increasing per protocol. No nutrition concerns at this time. Recommendations: 1) Continue with CHO controlled diet 2) Double protein TID 3) Monitor need for additional bowel care 4) Wt per rx Addendum: 07/06/18 at [address] Amended: Links added.
--- NOTE | 2018-07-06 18:22 | NUR ---
Problems reprioritized. Patient report given, Susan MERA questions answered & plan of care reviewed with . Patient in bed sleeping, bed low, locked call light in reach
--- NOTE | 2018-07-06 18:30 | NUR ---
Patient in room BELL 355. I have received report from Dasia MERA and had the opportunity to ask questions and assume patient care. Patient encouraged to eat, will continue to monitor.
[2018-07-06 19:00] VITALS: BP 135/63
[2018-07-06] MEDS: polyethylene glycol 3350 17gm powd pack PO SCH (21:29)
[2018-07-06] MEDS: insulin glargine (Lantus) pen - multi-dose SQ SCH (21:29)
[2018-07-07] VITALS (18 sets, daily range): BP systolic 108–161; BP diastolic 58–79
[2018-07-07] MEDS: metroNIDAZOLE 500mg tablet PO SCH ×4 (00:37→23:41)
[2018-07-07] MEDS: HYDROcodone/acetaminophen 10/325mg tab PO PRN ×3 (00:47→23:42)
[2018-07-07 06:40] LABS: BASOPHILS % (AUTO) 0.5 % (0-1); EOSINOPHILS # (AUTO) 0.1 X10'3 (0-0.9); EOSINOPHILS % (AUTO) 1.2 % (0-6); HEMOGLOBIN 13.4 g/dl (14.0-17.9)
[2018-07-07 06:42] LABS: HEMATOCRIT 40.5 % (42.0-52.0); LYMPHOCYTES # (AUTO) 2.7 X10'3 (1.1-4.8); LYMPHOCYTES % (AUTO) 27.9 % (21-51); MEAN CORPUSCULAR HEMOGLOBIN 29.3 PG (27.0-31.0); MEAN CORPUSCULAR VOLUME 88.6 FL (78-98); MEAN PLATELET VOLUME 7.4 FL (7.4-10.4); MONOCYTES # (AUTO) 0.9 X10'3 (0-0.9); MONOCYTES % (AUTO) 9.7 % (2-12); NEUTROPHILS # (AUTO) 5.8 X10'3 (1.8-7.7); NEUTROPHILS % (AUTO) 60.7 % (42-75); PLATELET COUNT 695 X10'3 (140-440); RED BLOOD COUNT 4.58 X10'6 (4.70-6.10); WHITE BLOOD COUNT 9.6 X10'3 (4.5-11.0)
--- NOTE | 2018-07-07 06:43 | NUR ---
Patient in room BELL 355. I have received report from EDE Davis and had the opportunity to ask questions and assume patient care.
--- NOTE | 2018-07-07 06:43 | NUR ---
Problems reprioritized. Patient report given, questions answered & plan of care reviewed with Makenna MERA. Patient resting, eyes openned when entered room. Introduced to Gabriel MERA.
[2018-07-07 06:49] LABS: INR 1.1 INR; PROTHROMBIN TIME 11.2 SECONDS (9.0-12.0)
[2018-07-07 06:57] LABS: ALANINE AMINOTRANSFERASE 58 U/L (12-78); ALBUMIN 2.5 G/DL (3.4-5.0); ALBUMIN/GLOBULIN RATIO 0.5 (1.1-1.5); ALKALINE PHOSPHATASE 155 IU/L (46-116); ANION GAP 7 (8-16); ASPARTATE AMINO TRANSFERASE 35 U/L (10-37); BILIRUBIN,TOTAL 0.2 MG/DL (0.1-1.0); BLOOD UREA NITROGEN 23 MG/DL (7-18); CHLORIDE 101 MMOL/L (99-107); CREATININE 1.15 MG/DL (0.60-1.10); GLUCOSE 173 MG/DL (70-104); PHOSPHORUS 4.5 MG/DL (2.3-4.5); POTASSIUM 4.5 MMOL/L (3.5-5.1); SODIUM 141 MMOL/L (135-145); TOTAL PROTEIN 7.4 G/DL (6.4-8.2); eGFR 65 ML/MIN
--- NOTE | 2018-07-07 07:23 | NUR ---
Pt refusing am insulin. Spoke to patient and educated regarding high blood glucose of 163, and that it should be treated before surgery, pt states "I dont want insulin unless my sugar is over 200."
[2018-07-07] MEDS: lactobacillus rhamnosus 10,000 MMU CELLS/CAPSULE PO SCH ×2 (07:25→19:26)
[2018-07-07] MEDS: docusate sod 100mg capsule PO SCH ×2 (07:25→20:00)
[2018-07-07] MEDS: CefTRIAXone 2gm/D5W 50ml 50 ML IV SCH (07:25)
--- NOTE | 2018-07-07 07:41 | NUR ---
Brad (OR Charge) called regarding patient advised patients blood sugar is 163 patient does not want insulin prior to surgery per RN Makenna. Also, advised patient is a DNR, and that RN is starting a new IV on patient at this time.
--- NOTE | 2018-07-07 07:56 | NUR ---
Report called to EDE Kirkland in Recovery. Surgery this am scheduled for [address] Gusman.
[2018-07-07] MEDS: K and/or MAG REPLACEMENT MC SCH (08:00)
[2018-07-07] MEDS ORDERED: fentaNYL/PF 50MCG/1 ML 2ML syringe ONE (08:49)
[2018-07-07] MEDS ORDERED: midazolam 2 mg/2 ml injection ONE (08:50)
[2018-07-07] MEDS ORDERED: ringers solution, lacted 1,000 ML IV SCH (09:22)
[2018-07-07] MEDS ORDERED: morphine 4 MG/ML inj SYRINge IV PRN ×2 (09:25)
[2018-07-07] MEDS ORDERED: ondansetron/PF 4mg/2ml inj IV PRN (09:25)
[2018-07-07] MEDS ORDERED: meperidine/PF 25mg/ml syringe IV PRN ×3 (09:25)
[2018-07-07] MEDS ORDERED: proCHLORperazine 10 MG/2 ml inj IV PRN (09:25)
[2018-07-07] MEDS ORDERED: bacitracin 15gm ointment TP ONE (09:31)
--- NOTE | 2018-07-07 09:43 | NUR ---
Received from OR via , accompanied by Anesthesiologist RACHEAL and report given by Anesthesiolgist. AWAKE IN NO RESP DISTRESS SKIN WARM AND DRY HOB AND FOB ELEVATED, NO CO PAIN, DSG TO RT FOOT DI, THIRSTY.
--- NOTE | 2018-07-07 10:33 | NUR ---
Report called to receiving nurse. Transferred via BED Belongings . Special Issues communicated to receiving nurse.AWAKE VS WNL, NO CO PAIN, DSG TO RT FOOT DI, HUNGREY, TOLERATES WATER 2 CUPS. WARD DCD CATH TIP INTACT, ESSENTIALLY CLEAR YELLOW URINE. SENSATION T12 L1, UNABLE TO MOVE BLE, VS WNL WITH HOB ELEVATED. TO ROOM 355B
--- NOTE | 2018-07-07 10:40 | NUR ---
Received report from EDE Kirkland in recovery and pt now in room 355B, vital signs stable, pt alert, oriented, with no distress at this time. Patient reports no pain at this time. post-op vitals started, will continue to monitor.
[2018-07-07] MEDS: insulin Lispro (HumaLOG) vial - multi-dose SQ SCH ×2 (13:27→19:28)
--- NOTE | 2018-07-07 18:30 | NUR ---
Problems reprioritized. Patient report given, questions answered & plan of care reviewed with Nella Fontenot RN.
[2018-07-07] MEDS: traMADol 50MG tablet PO PRN (19:40)
[2018-07-07] MEDS: polyethylene glycol 3350 17gm powd pack PO SCH (21:00)
[2018-07-07] MEDS: insulin glargine (Lantus) pen - multi-dose SQ SCH (21:16)
[2018-07-07] MEDS: heparin, porcine 5000 units/ml vial SQ SCH (21:21)
[2018-07-07] MEDS: morphine 10mg/ml inj. IV PRN (21:21)
[2018-07-08] MEDS: traMADol 50MG tablet PO PRN ×3 (01:03→19:17)
[2018-07-08] MEDS: morphine 10mg/ml inj. IV PRN (02:39)
[2018-07-08 02:45] VITALS: BP 128/69
[2018-07-08] MEDS: HYDROcodone/acetaminophen 10/325mg tab PO PRN ×4 (04:37→22:15)
[2018-07-08 05:54] LABS: HEMATOCRIT 40.2 % (42.0-52.0); HEMOGLOBIN 13.1 g/dl (14.0-17.9); MEAN CORPUSCULAR HGB CONC 32.6 g/dL (33.0-36.5); MEAN PLATELET VOLUME 7.4 FL (7.4-10.4); PLATELET COUNT 735 X10'3 (140-440); RED BLOOD COUNT 4.51 X10'6 (4.70-6.10); RED CELL DISTRIBUTION WIDTH 14.1 % (11.5-14.5); WHITE BLOOD COUNT 10.7 X10'3 (4.5-11.0)
[2018-07-08 06:11] LABS: ALBUMIN 2.4 G/DL (3.4-5.0); ANION GAP 6 (8-16); BLOOD UREA NITROGEN 21 MG/DL (7-18); BUN/CREATININE RATIO 15.2 (5.4-32.0); CALCIUM 8.7 MG/DL (8.5-10.1); CHLORIDE 99 MMOL/L (99-107); CREATININE 1.38 MG/DL (0.60-1.10); GLUCOSE 135 MG/DL (70-104); POTASSIUM 4.3 MMOL/L (3.5-5.1); SODIUM 136 MMOL/L (135-145); TOTAL CARBON DIOXIDE 30.8 MMOL/L (24-32); eGFR 52 ML/MIN
--- NOTE | 2018-07-08 06:20 | NUR ---
Patient in room BELL 355. I have received report from Paula MERA and had the opportunity to ask questions and assume patient care.
--- NOTE | 2018-07-08 06:31 | NUR ---
Problems reprioritized. Patient report given, questions answered & plan of care reviewed with EDE Carrasco.
[2018-07-08] MEDS: K and/or MAG REPLACEMENT MC SCH (07:09)
[2018-07-08 07:21] VITALS: BP 123/71
[2018-07-08] MEDS: metroNIDAZOLE 500mg tablet PO SCH ×3 (07:30→23:19)
[2018-07-08] MEDS: lactobacillus rhamnosus 10,000 MMU CELLS/CAPSULE PO SCH ×2 (07:30→19:04)
[2018-07-08] MEDS: heparin, porcine 5000 units/ml vial SQ SCH ×2 (07:30→19:04)
[2018-07-08] MEDS: docusate sod 100mg capsule PO SCH ×2 (07:38→20:00)
[2018-07-08] MEDS: methylnaltrexone br 12mg/0.6ml inj***SubQ only SQ SCH (07:38)
[2018-07-08] MEDS: CefTRIAXone 2gm/D5W 50ml 50 ML IV SCH (07:38)
[2018-07-08] MEDS: insulin Lispro (HumaLOG) vial - multi-dose SQ SCH ×3 (08:39→19:03)
[2018-07-08 11:49] VITALS: BP 116/62
--- NOTE | 2018-07-08 18:18 | NUR ---
Problems reprioritized. Patient report given, questions answered & plan of care reviewed with Paula MERA.
--- NOTE | 2018-07-08 18:24 | NUR ---
Student documentation: I have reviewed and agree with all interventions, assessments performed and documented by Karley Student Nurse. Student Medication Administration: For this medication-pass time frame, all medication were reviewed, dispensed, administered and documented per hospital policy by Karley Student Nurse.
[2018-07-08 19:00] VITALS: BP 134/74
--- NOTE | 2018-07-08 20:00 | NUR ---
Pt great toe on left side contains crack to base. Little bleeding noted. Cleansed with NS and placed large bandaid.
[2018-07-08] MEDS: insulin glargine (Lantus) pen - multi-dose SQ SCH (20:51)
[2018-07-08] MEDS: polyethylene glycol 3350 17gm powd pack PO SCH (21:00)
[2018-07-09] VITALS: BP 121/87
[2018-07-09] MEDS: traMADol 50MG tablet PO PRN ×3 (01:37→18:43)
[2018-07-09] MEDS: HYDROcodone/acetaminophen 10/325mg tab PO PRN ×4 (05:16→21:12)
[2018-07-09 05:49] LABS: HEMATOCRIT 38.5 % (42.0-52.0); HEMOGLOBIN 12.9 g/dl (14.0-17.9); MEAN CORPUSCULAR HEMOGLOBIN 29.2 PG (27.0-31.0); MEAN CORPUSCULAR HGB CONC 33.4 g/dL (33.0-36.5); MEAN CORPUSCULAR VOLUME 87.4 FL (78-98); MEAN PLATELET VOLUME 7.6 FL (7.4-10.4); PLATELET COUNT 672 X10'3 (140-440); RED CELL DISTRIBUTION WIDTH 13.8 % (11.5-14.5); WHITE BLOOD COUNT 9.5 X10'3 (4.5-11.0)
[2018-07-09 06:05] LABS: ALBUMIN 2.4 G/DL (3.4-5.0); ANION GAP 7 (8-16); BLOOD UREA NITROGEN 22 MG/DL (7-18); BUN/CREATININE RATIO 19.3 (5.4-32.0); CALCIUM 8.8 MG/DL (8.5-10.1); CHLORIDE 99 MMOL/L (99-107); CREATININE 1.14 MG/DL (0.60-1.10); GLUCOSE 233 MG/DL (70-104); PHOSPHORUS 4.4 MG/DL (2.3-4.5); POTASSIUM 4.4 MMOL/L (3.5-5.1); SODIUM 136 MMOL/L (135-145); TOTAL CARBON DIOXIDE 30.2 MMOL/L (24-32); eGFR 65 ML/MIN
--- NOTE | 2018-07-09 06:16 | NUR ---
Problems reprioritized. Patient report given, questions answered & plan of care reviewed with EDE Carrasco.
--- NOTE | 2018-07-09 06:35 | NUR ---
Patient in room BELL 355. I have received report from aPula MERA and had the opportunity to ask questions and assume patient care.
[2018-07-09 07:32] VITALS: BP 125/74
[2018-07-09] MEDS: K and/or MAG REPLACEMENT MC SCH (07:34)
[2018-07-09] MEDS: metroNIDAZOLE 500mg tablet PO SCH ×2 (07:37→15:21)
[2018-07-09] MEDS: lactobacillus rhamnosus 10,000 MMU CELLS/CAPSULE PO SCH ×2 (07:37→18:43)
[2018-07-09] MEDS: docusate sod 100mg capsule PO SCH ×2 (07:38→18:43)
[2018-07-09] MEDS: CefTRIAXone 2gm/D5W 50ml 50 ML IV SCH (07:38)
[2018-07-09] MEDS: heparin, porcine 5000 units/ml vial SQ SCH ×2 (07:38→18:44)
[2018-07-09] MEDS: insulin Lispro (HumaLOG) vial - multi-dose SQ SCH ×3 (09:04→18:47)
[2018-07-09 11:24] VITALS: BP 136/71
[2018-07-09] MEDS ORDERED: tamsulosin 0.4mg capsule PO ONE (11:36)
--- NOTE | 2018-07-09 18:22 | NUR ---
Problems reprioritized. Patient report given, questions answered & plan of care reviewed with Paula MERA.
[2018-07-09] MEDS: ondansetron/PF 4mg/2ml inj IV PRN (19:00)
--- NOTE | 2018-07-09 19:01 | NUR ---
c/o indigestion, nausea, pain. Meds administered. Will continue to monitor.
[2018-07-09 20:00] VITALS: BP 132/71
[2018-07-09] MEDS: insulin glargine (Lantus) pen - multi-dose SQ SCH (21:10)
[2018-07-09] MEDS: polyethylene glycol 3350 17gm powd pack PO SCH (21:12)
[2018-07-10] VITALS: BP 130/80
[2018-07-10] MEDS: metroNIDAZOLE 500mg tablet PO SCH ×3 (00:16→16:46)
[2018-07-10] MEDS: morphine 10mg/ml inj. IV PRN (00:25)
--- NOTE | 2018-07-10 00:30 | NUR ---
Pt was up to walk when he became very weak, shortness of breath, and began c/o severe pain. Assisted into wc and 2PA to bed. Medicated for pain and nausea. Changed outer dressing to right foot wound as serosang was seeping through. Checked blood sugar per pt request. Blood glucose 161. Encouraged to relax and rest. Checked on pt 10 minutes later. He was rambling on and showing signs of anxiety. Checked on pt 30 minutes later, patient now sleeping. Will continue to monitor.
[2018-07-10] MEDS: ondansetron/PF 4mg/2ml inj IV PRN (00:40)
[2018-07-10 05:15] LABS: HEMATOCRIT 37.5 % (42.0-52.0); HEMOGLOBIN 12.8 g/dl (14.0-17.9); MEAN CORPUSCULAR HEMOGLOBIN 29.6 PG (27.0-31.0); MEAN CORPUSCULAR HGB CONC 34.2 g/dL (33.0-36.5); MEAN CORPUSCULAR VOLUME 86.5 FL (78-98); MEAN PLATELET VOLUME 7.5 FL (7.4-10.4); PLATELET COUNT 728 X10'3 (140-440); RED BLOOD COUNT 4.33 X10'6 (4.70-6.10); RED CELL DISTRIBUTION WIDTH 13.7 % (11.5-14.5); WHITE BLOOD COUNT 9.1 X10'3 (4.5-11.0)
[2018-07-10 05:25] LABS: ALBUMIN 2.5 G/DL (3.4-5.0); ANION GAP 6 (8-16); BLOOD UREA NITROGEN 17 MG/DL (7-18); BUN/CREATININE RATIO 15.5 (5.4-32.0); CALCIUM 8.8 MG/DL (8.5-10.1); CHLORIDE 101 MMOL/L (99-107); GLUCOSE 167 MG/DL (70-104); PHOSPHORUS 4.3 MG/DL (2.3-4.5); POTASSIUM 4.4 MMOL/L (3.5-5.1); SODIUM 137 MMOL/L (135-145); TOTAL CARBON DIOXIDE 29.7 MMOL/L (24-32); eGFR 68 ML/MIN
--- NOTE | 2018-07-10 06:39 | NUR ---
Problems reprioritized. Patient report given, questions answered & plan of care reviewed with EDE Oscar.
[2018-07-10 07:00] VITALS: BP 115/69
[2018-07-10] MEDS: K and/or MAG REPLACEMENT MC SCH (08:00)
[2018-07-10] MEDS: docusate sod 100mg capsule PO SCH ×2 (08:00→19:30)
[2018-07-10] MEDS ORDERED: normal saline 1000ml 1,000 ML IV SCH (08:30)
[2018-07-10] MEDS: CefTRIAXone 2gm/D5W 50ml 50 ML IV SCH (09:43)
[2018-07-10] MEDS: lactobacillus rhamnosus 10,000 MMU CELLS/CAPSULE PO SCH ×2 (09:44→19:30)
[2018-07-10] MEDS: HYDROcodone/acetaminophen 10/325mg tab PO PRN ×2 (09:48→14:21)
[2018-07-10] MEDS: heparin, porcine 5000 units/ml vial SQ SCH ×2 (09:53→19:30)
[2018-07-10] MEDS: methylnaltrexone br 12mg/0.6ml inj***SubQ only SQ SCH (09:54)
[2018-07-10] MEDS: insulin Lispro (HumaLOG) vial - multi-dose SQ SCH ×3 (10:10→18:47)
[2018-07-10 12:00] VITALS: BP 136/74
[2018-07-10] MEDS: traMADol 50MG tablet PO PRN ×2 (16:51→22:19)
--- NOTE | 2018-07-10 18:28 | NUR ---
GAVE REPORT TO YAHAIRA Harden PT. DISGRUNTLED ABOUT DINNER. REASSURED, AND OFFERED OTHER FOOD. PT. STATES HE WOULD LIKE SOMETHING TO EAT LATER. NOC NURSE AWARE.
--- NOTE | 2018-07-10 18:38 | NUR ---
Patient in room BELL 355. I have received report from EDE Cooper and had the opportunity to ask questions and assume patient care. Addendum: 07/10/18 at 1838 by Linda Pompa RN Amended: Links added.
[2018-07-10 19:00] VITALS: BP 148/82
[2018-07-10] MEDS: HYDROcodone/acetaminophen 5mg/325mg tablet PO PRN (19:39)
[2018-07-10] MEDS: tamsulosin 0.4mg capsule PO SCH (20:37)
[2018-07-10] MEDS: polyethylene glycol 3350 17gm powd pack PO SCH (20:37)
[2018-07-10] MEDS: insulin glargine (Lantus) pen - multi-dose SQ SCH (20:41)
[2018-07-10] MEDS ORDERED: tamsulosin 0.4mg capsule PO SCH (21:00)
[2018-07-11] MEDS: metroNIDAZOLE 500mg tablet PO SCH ×2 (00:05→07:16)
[2018-07-11] MEDS: HYDROcodone/acetaminophen 5mg/325mg tablet PO PRN ×2 (00:06→07:17)
[2018-07-11 00:20] VITALS: BP 140/71
--- NOTE | 2018-07-11 06:21 | NUR ---
Patient in room BELL 355. I have received report from EDE Mitchell and had the opportunity to ask questions and assume patient care. Patient resting comfortably at this time. Right leg elevated. Call light and items of frequent use in reach of patient.
--- NOTE | 2018-07-11 06:23 | NUR ---
Problems reprioritized. Patient report given, questions answered & plan of care reviewed with EDE Escamilla.
[2018-07-11] MEDS: K and/or MAG REPLACEMENT MC SCH (06:58)
[2018-07-11] MEDS: lactobacillus rhamnosus 10,000 MMU CELLS/CAPSULE PO SCH ×2 (07:16→21:07)
[2018-07-11] MEDS: heparin, porcine 5000 units/ml vial SQ SCH ×2 (07:16→21:08)
[2018-07-11] MEDS: CefTRIAXone 2gm/D5W 50ml 50 ML IV SCH (07:16)
[2018-07-11] MEDS: docusate sod 100mg capsule PO SCH ×2 (07:16→21:08)
[2018-07-11 07:35] VITALS: BP 127/75
[2018-07-11] MEDS: insulin Lispro (HumaLOG) vial - multi-dose SQ SCH ×3 (09:32→18:48)
[2018-07-11] MEDS: morphine 10mg/ml inj. IV PRN (09:53)
[2018-07-11 11:00] VITALS: BP 121/72
[2018-07-11] MEDS: metroNIDAZOLE-Flagyl 500mg/NS 100 ML IV SCH (16:22)
[2018-07-11] MEDS: HYDROcodone/acetaminophen 10/325mg tab PO PRN (16:23)
--- NOTE | 2018-07-11 18:17 | NUR ---
Patient in room BELL 355. I have received report from EDE Escamilla and had the opportunity to ask questions and assume patient care. Addendum: 07/11/18 at 1818 by Linda Pompa RN Amended: Links added.
--- NOTE | 2018-07-11 18:18 | NUR ---
Problems reprioritized. Patient report given, questions answered & plan of care reviewed with DEE Mitchell.
[2018-07-11 20:00] VITALS: BP 148/54
[2018-07-11] MEDS ORDERED: morphine ER 15mg tablet PO ONE (20:20)
[2018-07-11] MEDS: insulin glargine (Lantus) pen - multi-dose SQ SCH (21:06)
[2018-07-11] MEDS: tamsulosin 0.4mg capsule PO SCH (21:07)
[2018-07-11] MEDS: polyethylene glycol 3350 17gm powd pack PO SCH (21:08)
--- NOTE | 2018-07-11 22:38 | NUR ---
pt concerned about his pain being constant specially at night that he could not get any sleep. stated that norco and tramadol does not really work with the pain, he does have IV morphine but only wants it if he really needs it. Spoke with Dr. Sky and ordered morphine 15mg x1 for tonight, medication given and hasnt been c/o of any pain nor given his norco
[2018-07-12 00:22] VITALS: BP 133/68
[2018-07-12] MEDS: metroNIDAZOLE-Flagyl 500mg/NS 100 ML IV SCH ×3 (00:48→16:14)
--- NOTE | 2018-07-12 06:43 | NUR ---
Problems reprioritized. Patient report given, questions answered & plan of care reviewed with EDE Balckwood.
--- NOTE | 2018-07-12 06:56 | NUR ---
Patient in room BELL 355. I have received report from Paula Nuñez RN and had the opportunity to ask questions and assume patient care.
[2018-07-12] MEDS: K and/or MAG REPLACEMENT MC SCH (08:00)
[2018-07-12 08:10] VITALS: BP 141/74
[2018-07-12 08:16] LABS: BASOPHILS # (AUTO) 0.1 X10'3 (0-0.2); EOSINOPHILS # (AUTO) 0.2 X10'3 (0-0.9); HEMOGLOBIN 12.9 g/dl (14.0-17.9); MONOCYTES # (AUTO) 0.7 X10'3 (0-0.9)
[2018-07-12 08:18] LABS: BASOPHILS % (AUTO) 0.8 % (0-1); HEMATOCRIT 39.3 % (42.0-52.0); LYMPHOCYTES # (AUTO) 1.8 X10'3 (1.1-4.8); LYMPHOCYTES % (AUTO) 22.1 % (21-51); MEAN CORPUSCULAR HEMOGLOBIN 28.9 PG (27.0-31.0); MEAN CORPUSCULAR HGB CONC 32.8 g/dL (33.0-36.5); MEAN PLATELET VOLUME 7.5 FL (7.4-10.4); MONOCYTES % (AUTO) 8.3 % (2-12); NEUTROPHILS # (AUTO) 5.3 X10'3 (1.8-7.7); NEUTROPHILS % (AUTO) 66.8 % (42-75); PLATELET COUNT 732 X10'3 (140-440); RED BLOOD COUNT 4.47 X10'6 (4.70-6.10); RED CELL DISTRIBUTION WIDTH 14.2 % (11.5-14.5); WHITE BLOOD COUNT 7.9 X10'3 (4.5-11.0)
[2018-07-12] MEDS: CefTRIAXone 2gm/D5W 50ml 50 ML IV SCH (08:19)
[2018-07-12] MEDS: lactobacillus rhamnosus 10,000 MMU CELLS/CAPSULE PO SCH ×2 (08:20→21:03)
[2018-07-12] MEDS: docusate sod 100mg capsule PO SCH ×2 (08:20→21:03)
[2018-07-12] MEDS: HYDROcodone/acetaminophen 10/325mg tab PO PRN ×3 (08:21→21:04)
[2018-07-12] MEDS: methylnaltrexone br 12mg/0.6ml inj***SubQ only SQ SCH (08:22)
[2018-07-12] MEDS: heparin, porcine 5000 units/ml vial SQ SCH ×2 (08:22→21:03)
[2018-07-12 08:37] LABS: ALANINE AMINOTRANSFERASE 42 U/L (12-78); ALBUMIN 2.6 G/DL (3.4-5.0); ALBUMIN/GLOBULIN RATIO 0.5 (1.1-1.5); ALKALINE PHOSPHATASE 128 IU/L (46-116); ANION GAP 7 (8-16); ASPARTATE AMINO TRANSFERASE 24 U/L (10-37); BILIRUBIN,TOTAL 0.2 MG/DL (0.1-1.0); BLOOD UREA NITROGEN 22 MG/DL (7-18); BUN/CREATININE RATIO 18.6 (5.4-32.0); CHLORIDE 99 MMOL/L (99-107); CREATININE 1.18 MG/DL (0.60-1.10); GLUCOSE 257 MG/DL (70-104); POTASSIUM 4.5 MMOL/L (3.5-5.1); SODIUM 135 MMOL/L (135-145); TOTAL CARBON DIOXIDE 28.6 MMOL/L (24-32); TOTAL PROTEIN 7.5 G/DL (6.4-8.2); eGFR 63 ML/MIN
[2018-07-12] MEDS: insulin Lispro (HumaLOG) vial - multi-dose SQ SCH ×3 (10:43→19:07)
[2018-07-12 11:00] VITALS: BP 124/79
[2018-07-12] MEDS: HYDROcodone/acetaminophen 5mg/325mg tablet PO PRN (12:07)
--- NOTE | 2018-07-12 14:27 | NUR ---
Reassessment: Pt PO 100% carb controlled meals meeting needs. LBM 07/09. GLU 250 today received 10 units of Lantus for 232 AM GLU. Will continue to monitor. Recommendations: 1) Continue with CHO controlled diet 2) Double protein TID 3) Monitor need for additional bowel care 4) Wt per rx Addendum: 07/12/18 at [address] Amended: Links added.
--- NOTE | 2018-07-12 18:25 | NUR ---
Patient in room BELL 355. I have received report from EDE Blackwood and had the opportunity to ask questions and assume patient care.
--- NOTE | 2018-07-12 18:31 | NUR ---
Problems reprioritized. Patient report given, questions answered & plan of care reviewed with YAHAIRA Nuñez RN.
[2018-07-12] MEDS: normal saline 1000ml 1,000 ML IV SCH (18:39)
[2018-07-12 20:00] VITALS: BP 158/86
[2018-07-12] MEDS: insulin glargine (Lantus) pen - multi-dose SQ SCH (21:01)
[2018-07-12] MEDS: polyethylene glycol 3350 17gm powd pack PO SCH (21:02)
[2018-07-12] MEDS: tamsulosin 0.4mg capsule PO SCH (21:03)
[2018-07-13] VITALS: BP 149/79
[2018-07-13] MEDS: metroNIDAZOLE-Flagyl 500mg/NS 100 ML IV SCH ×3 (00:08→15:51)
[2018-07-13] MEDS: normal saline 1000ml 1,000 ML IV SCH ×4 (01:33→19:00)
--- NOTE | 2018-07-13 06:35 | NUR ---
Patient in room BELL 355. I have received report from Paula Nuñez RN and had the opportunity to ask questions and assume patient care.
--- NOTE | 2018-07-13 06:42 | NUR ---
Problems reprioritized. Patient report given, questions answered & plan of care reviewed with EDE Blackwood.
[2018-07-13 07:00] VITALS: BP 150/80
[2018-07-13] MEDS: CefTRIAXone 2gm/D5W 50ml 50 ML IV SCH (07:36)
[2018-07-13] MEDS: HYDROcodone/acetaminophen 10/325mg tab PO PRN ×3 (07:36→21:15)
[2018-07-13] MEDS: docusate sod 100mg capsule PO SCH ×2 (07:36→21:03)
[2018-07-13] MEDS: lactobacillus rhamnosus 10,000 MMU CELLS/CAPSULE PO SCH ×2 (07:36→21:03)
[2018-07-13] MEDS: heparin, porcine 5000 units/ml vial SQ SCH ×2 (07:37→21:04)
[2018-07-13] MEDS: K and/or MAG REPLACEMENT MC SCH (08:00)
[2018-07-13] MEDS: insulin Lispro (HumaLOG) vial - multi-dose SQ SCH ×3 (09:06→19:37)
[2018-07-13 11:00] VITALS: BP 124/58
[2018-07-13] MEDS ORDERED: morphine 4 MG/ML inj SYRINge IV PRN (12:15)
--- NOTE | 2018-07-13 12:46 | NUR ---
patient stated that he had struck the table with his right foot. very painful. Foot viewed appears to look the same as prior to accident. packing changed and foot redressed.patient medicated prior to procedure with morphine as per Dr Moreau see emar.patient resting at this time. will continue to monitor.
--- NOTE | 2018-07-13 18:30 | NUR ---
Patient in room BELL 355. I have received report from EDE Blackwood and had the opportunity to ask questions and assume patient care.
--- NOTE | 2018-07-13 18:56 | NUR ---
Problems reprioritized. Patient report given, questions answered & plan of care reviewed with pat RN.
[2018-07-13 19:30] VITALS: BP 147/77
[2018-07-13] MEDS: tamsulosin 0.4mg capsule PO SCH (21:04)
[2018-07-13] MEDS: polyethylene glycol 3350 17gm powd pack PO SCH (21:05)
[2018-07-13] MEDS: insulin glargine (Lantus) pen - multi-dose SQ SCH (21:31)
[2018-07-14] VITALS: BP 151/81
[2018-07-14] MEDS: metroNIDAZOLE-Flagyl 500mg/NS 100 ML IV SCH ×2 (00:07→09:04)
[2018-07-14] MEDS: HYDROcodone/acetaminophen 10/325mg tab PO PRN ×3 (01:25→12:41)
[2018-07-14] MEDS: normal saline 1000ml 1,000 ML IV SCH (04:10)
[2018-07-14 06:07] LABS: BASOPHILS % (AUTO) 0.7 % (0-1); EOSINOPHILS # (AUTO) 0.1 X10'3 (0-0.9); HEMOGLOBIN 12.5 g/dl (14.0-17.9); NEUTROPHILS # (AUTO) 3.5 X10'3 (1.8-7.7)
[2018-07-14 06:10] LABS: EOSINOPHILS % (AUTO) 1.9 % (0-6); HEMATOCRIT 37.7 % (42.0-52.0); LYMPHOCYTES # (AUTO) 1.6 X10'3 (1.1-4.8); LYMPHOCYTES % (AUTO) 28.3 % (21-51); MEAN CORPUSCULAR HGB CONC 33.2 g/dL (33.0-36.5); MEAN CORPUSCULAR VOLUME 87.5 FL (78-98); MEAN PLATELET VOLUME 7.6 FL (7.4-10.4); MONOCYTES # (AUTO) 0.5 X10'3 (0-0.9); NEUTROPHILS % (AUTO) 61.1 % (42-75); PLATELET COUNT 569 X10'3 (140-440); RED BLOOD COUNT 4.31 X10'6 (4.70-6.10); RED CELL DISTRIBUTION WIDTH 13.8 % (11.5-14.5); WHITE BLOOD COUNT 5.8 X10'3 (4.5-11.0)
[2018-07-14 06:19] LABS: ALANINE AMINOTRANSFERASE 37 U/L (12-78); ALBUMIN 2.4 G/DL (3.4-5.0); ALBUMIN/GLOBULIN RATIO 0.5 (1.1-1.5); ALKALINE PHOSPHATASE 107 IU/L (46-116); ANION GAP 7 (8-16); ASPARTATE AMINO TRANSFERASE 32 U/L (10-37); BILIRUBIN,TOTAL 0.2 MG/DL (0.1-1.0); BLOOD UREA NITROGEN 16 MG/DL (7-18); BUN/CREATININE RATIO 17.4 (5.4-32.0); CHLORIDE 103 MMOL/L (99-107); CREATININE 0.92 MG/DL (0.60-1.10); GLUCOSE 163 MG/DL (70-104); SODIUM 139 MMOL/L (135-145); TOTAL CARBON DIOXIDE 28.7 MMOL/L (24-32); eGFR 84 ML/MIN
--- NOTE | 2018-07-14 06:24 | NUR ---
Patient in room BELL 355. I have received report from Pat RN and had the opportunity to ask questions and assume patient care.
--- NOTE | 2018-07-14 06:30 | NUR ---
report given to EDE Blackwood
--- NOTE | 2018-07-14 06:34 | NUR ---
Patient in room BELL 355. I have received report from EDE Blackwood and had the opportunity to ask questions and assume patient care.
[2018-07-14 06:42] VITALS: BP 138/83
[2018-07-14] MEDS: CefTRIAXone 2gm/D5W 50ml 50 ML IV SCH (07:42)
[2018-07-14] MEDS: docusate sod 100mg capsule PO SCH (07:50)
[2018-07-14] MEDS: lactobacillus rhamnosus 10,000 MMU CELLS/CAPSULE PO SCH (07:50)
[2018-07-14] MEDS: heparin, porcine 5000 units/ml vial SQ SCH (07:53)
[2018-07-14] MEDS: methylnaltrexone br 12mg/0.6ml inj***SubQ only SQ SCH (08:00)
[2018-07-14] MEDS: K and/or MAG REPLACEMENT MC SCH (08:00)
[2018-07-14] MEDS: insulin Lispro (HumaLOG) vial - multi-dose SQ SCH ×2 (08:51→13:29)
--- NOTE | 2018-07-14 12:00 | NUR ---
Patient in room BELL 355. I have received report from mary healy and had the opportunity to ask questions and assume patient care.
[2018-07-14] MEDS ORDERED: AMOX-580 PO (12:05)
[2018-07-14] MEDS ORDERED: OMEP40CA37 PO (12:05)
[2018-07-14] MEDS ORDERED: tamsulosin capsule PO (12:05)
[2018-07-14] MEDS ORDERED: HYDR-3972 PO (12:05)
[2018-07-14 12:06] VITALS: BP 161/88
--- NOTE | 2018-07-14 12:08 | NUR ---
Problems reprioritized. Patient report given, questions answered & plan of care reviewed with EDE Blackwood.
--- NOTE | 2018-07-14 12:11 | NUR ---
Student documentation: I have reviewed and agree with all interventions, assessments performed and documented by Rj, nursing executive.
--- NOTE | 2018-07-14 12:12 | NUR ---
Student Medication Administration: For this medication-pass time frame, all medication were reviewed, dispensed, administered and documented per hospital policy by Rj student assistant.
--- NOTE | 2018-07-14 13:56 | NUR ---
DR Gusman and DR Moreau in to see patient. Patient is for discharge. wound pictured and dressing and packing changed. Supplies given to patient. Patient instructed to call wound clinic to make appointment . Negative heel boot in place . All instructions given to patient . Patient DC with brother via private car to brothers home 1400hrs.
== END 2018-07-14 13:45 | disposition home or self-care (01) | DRG 854 ==
LOC: ER 10:48 → ED HOLD 16:13 → SUR 3N 17:52
PROVIDERS: ADMIT Internal Medicine; ATTEND Internal Medicine
PROC: 0Y6M0Z4 Detachment at Right Foot, Complete 1st Ray, Open Approach (ICD-10-PCS; principal; 2018-07-07 08:46)
DX: A40.1 Sepsis due to streptococcus, group B (principal); N17.9 Acute kidney failure, unspecified; L03.115 Cellulitis of right lower limb; M86.8X7 Other osteomyelitis, ankle and foot; L03.032 Cellulitis of left toe; E87.6 Hypokalemia; E11.65 Type 2 diabetes mellitus with hyperglycemia; E11.42 Type 2 diabetes mellitus with diabetic polyneuropathy; E11.621 Type 2 diabetes mellitus with foot ulcer; E11.69 Type 2 diabetes mellitus with other specified complication; E78.5 Hyperlipidemia, unspecified; Z96.653 Presence of artificial knee joint, bilateral; Z96.643 Presence of artificial hip joint, bilateral; R00.0 Tachycardia, unspecified; L97.519 Non-pressure chronic ulcer of other part of right foot with unspecified severity; K59.00 Constipation, unspecified; E11.22 Type 2 diabetes mellitus with diabetic chronic kidney disease; I12.9 Hypertensive chronic kidney disease with stage 1 through stage 4 chronic kidney disease, or unspecified chronic kidney disease; N18.9 Chronic kidney disease, unspecified; N40.0 Benign prostatic hyperplasia without lower urinary tract symptoms; Z66 Do not resuscitate; Z79.4 Long term (current) use of insulin; Z89.422 Acquired absence of other left toe(s); Z88.8 Allergy status to other drugs, medicaments and biological substances; Z59.0 Homelessness; Z89.431 Acquired absence of right foot; Z91.14 Patient's other noncompliance with medication regimen; Z91.19 Patient's noncompliance with other medical treatment and regimen; Z79.899 Other long term (current) drug therapy
CPT/HCPCS: 36415; 71045; 73630; 73723; 80048; 80053; 80202; 81001; 82948; 83036; 83605; 83735; 84100; 84132; 84145; 85025; 85027; 85610; 85651; 86140; 87040; 87070; 87075; 87077; 87186; 88305; 88311; 93005; 96365; 97116; 97161; 97530; 99285; A6222; A6266; A6446; A6449; A7000; A9579; C1758; G0378; J0692; J0696; J1644; J1815; J2250; J2270; J2405; J3010; J3370; J3490; J7030; J7120

== ENCOUNTER 2018-07-17 09:10 | Day surgery (SDC) | payer MEDICARE, MEDICAID ==
[~2018-07-17 09:10] MED LIST: AMOX-580 PO; HYDR-3972 PO; INSU100V9 SQ; NOVRI SQ; OMEP40CA37 PO; tamsulosin capsule PO
--- NOTE | 2018-07-17 14:11 | NUR ---
Patient ambulated independently from [facility] and was admitted to outpatient wound care for first time visit with physician. Dressing removed and wounds cleansed. Patient assessed and medications and medical history reviewed. Dr. Gusman at bedside accompanied by RN. Wound assessed, time out performed by MD/RN. Wound debrided as detailed in the physician progress/procedure note. Plan of care discussed with patient. Dressings placed per MD orders. Patient instructed on the signs and symptoms of infection and to call the Wound Center if any occur or to go to the ED if we are closed: Increased pain in wound Increase in drainage from the wound Redness in the skin surrounding the wound Bleeding from the wound Temperature of 101 or greater Patient instructed that elevated blood sugars delay healing of the wound and can cause further complications including but not limited to amputation of toes or feet. Patient instructed that the weight of their body puts a large amount of pressure on their wounds. This pressure keeps the new tissue from growing and inhibits new blood vessels from forming. Explained that, if they continue to bear weight on a body part that has a wound, the time it takes to heal the wound increases, the wound may get worse or the wound may not heal at all. Patient verbalized understanding of all discharge instructions and plan of care and ambulated independently out to [facility] in stable condition with no sign or symptom of distress at time of discharge. Addendum: 07/17/18 at 1413 by Hilda Spencer RN Amended: Links added.
== END 2018-07-17 11:10 | disposition home or self-care (01) ==
LOC: WOUND CARE 09:10
PROVIDERS: ATTEND Surgery
DX: T87.89 Other complications of amputation stump (principal); E11.621 Type 2 diabetes mellitus with foot ulcer; L97.512 Non-pressure chronic ulcer of other part of right foot with fat layer exposed; E11.65 Type 2 diabetes mellitus with hyperglycemia; E11.42 Type 2 diabetes mellitus with diabetic polyneuropathy; E11.69 Type 2 diabetes mellitus with other specified complication; M86.8X7 Other osteomyelitis, ankle and foot; E11.22 Type 2 diabetes mellitus with diabetic chronic kidney disease; I12.9 Hypertensive chronic kidney disease with stage 1 through stage 4 chronic kidney disease, or unspecified chronic kidney disease; N18.9 Chronic kidney disease, unspecified; E78.5 Hyperlipidemia, unspecified; Z96.643 Presence of artificial hip joint, bilateral; Z96.653 Presence of artificial knee joint, bilateral; Z79.4 Long term (current) use of insulin; Z79.899 Other long term (current) drug therapy; Z89.422 Acquired absence of other left toe(s); Y83.5 Amputation of limb(s) as the cause of abnormal reaction of the patient, or of later complication, without mention of misadventure at the time of the procedure
CPT/HCPCS: 11042; 36416; 82948; A6209; A6223; A6446

== ENCOUNTER 2018-07-21 09:15 | Day surgery (SDC) | payer MEDICARE, MEDICAID ==
[2018-07-21] MEDS ORDERED: LIDOcaine/PRILOcaine 5gm cream TP ONE (09:43)
--- NOTE | 2018-07-21 11:30 | NUR ---
Patient ambulated with walker from [facility] and was admitted to outpatient wound care for physician visit with Richard uGsman MD. Dressing removed, wound cleansed and Emla cream applied per order. Patient assessed for changes in conditions, medications and medical history. 0947 - blood glucose 129. Patient instructed that elevated blood sugars delay healing of the wound and can cause further complications including but not limited to amputation of toes or feet. 1050 - Dr. Gusman at bedside accompanied by RN. Wound assessed, time out performed by MD/RN. Wound debrided as detailed in the physician progress/procedure note. Plan of care discussed with patient. Dressings placed per MD orders. Patient instructed on the signs and symptoms of infection and to call the Wound Center if any occur or to go to the ED if we are closed: Increased pain in wound Increase in drainage from the wound Redness in the skin surrounding the wound Bleeding from the wound Temperature of 101 or greater Patient instructed that the weight of their body puts a large amount of pressure on their wounds. This pressure keeps the new tissue from growing and inhibits new blood vessels from forming. Explained that, if they continue to bear weight on a body part that has a wound, the time it takes to heal the wound increases, the wound may get worse or the wound may not heal at all. Patient verbalized understanding of all discharge instructions and plan of care and ambulated with walker out to [facility] in stable condition with no sign or symptom of distress at time of discharge.
== END 2018-07-21 11:20 | disposition home or self-care (01) ==
LOC: WOUND CARE 09:15
PROVIDERS: ATTEND Surgery
DX: T87.89 Other complications of amputation stump (principal); E11.621 Type 2 diabetes mellitus with foot ulcer; L97.512 Non-pressure chronic ulcer of other part of right foot with fat layer exposed; E11.65 Type 2 diabetes mellitus with hyperglycemia; E11.42 Type 2 diabetes mellitus with diabetic polyneuropathy; E11.69 Type 2 diabetes mellitus with other specified complication; M86.8X7 Other osteomyelitis, ankle and foot; E11.22 Type 2 diabetes mellitus with diabetic chronic kidney disease; I12.9 Hypertensive chronic kidney disease with stage 1 through stage 4 chronic kidney disease, or unspecified chronic kidney disease; N18.9 Chronic kidney disease, unspecified; E78.5 Hyperlipidemia, unspecified; Z96.643 Presence of artificial hip joint, bilateral; Z96.653 Presence of artificial knee joint, bilateral; Z79.4 Long term (current) use of insulin; Z79.899 Other long term (current) drug therapy; Z89.422 Acquired absence of other left toe(s); Y83.5 Amputation of limb(s) as the cause of abnormal reaction of the patient, or of later complication, without mention of misadventure at the time of the procedure
CPT/HCPCS: 11042; 36416; 82948; A6209; A6266; A6446

== ENCOUNTER 2018-07-24 09:25 | Day surgery (SDC) | payer MEDICARE, MEDICAID ==
[2018-07-24] MEDS ORDERED: LIDOcaine/PRILOcaine 5gm cream TP ONE (11:14)
--- NOTE | 2018-07-24 15:44 | NUR ---
Patient ambulated independently from [facility] and was admitted to outpatient wound care for physician visit with Richard Gusman MD. Dressing removed, wound cleansed and Emla cream applied per order. Patient assessed for changes in conditions, medications and medical history. Dr. Gusman at bedside accompanied by RN. Wound assessed, time out performed by MD/RN. Wound debrided as detailed in the physician progress/procedure note. Plan of care discussed with patient. Dressings placed per MD orders. Patient instructed on the signs and symptoms of infection and to call the Wound Center if any occur or to go to the ED if we are closed: Increased pain in wound Increase in drainage from the wound Redness in the skin surrounding the wound Bleeding from the wound Temperature of 101 or greater Patient instructed that elevated blood sugars delay healing of the wound and can cause further complications including but not limited to amputation of toes or feet. Patient instructed that the weight of their body puts a large amount of pressure on their wounds. This pressure keeps the new tissue from growing and inhibits new blood vessels from forming. Explained that, if they continue to bear weight on a body part that has a wound, the time it takes to heal the wound increases, the wound may get worse or the wound may not heal at all. Patient verbalized understanding of all discharge instructions and plan of care and ambulated independently out to [facility] in stable condition with no sign or symptom of distress at time of discharge. Addendum: 07/24/18 at 1547 by Hilda Spencer RN Amended: Links added.
== END 2018-07-24 12:25 | disposition home or self-care (01) ==
LOC: WOUND CARE 09:25
PROVIDERS: ATTEND Surgery
DX: T87.89 Other complications of amputation stump (principal); E11.621 Type 2 diabetes mellitus with foot ulcer; L97.512 Non-pressure chronic ulcer of other part of right foot with fat layer exposed; E11.65 Type 2 diabetes mellitus with hyperglycemia; E11.42 Type 2 diabetes mellitus with diabetic polyneuropathy; E11.69 Type 2 diabetes mellitus with other specified complication; M86.8X7 Other osteomyelitis, ankle and foot; E11.22 Type 2 diabetes mellitus with diabetic chronic kidney disease; I12.9 Hypertensive chronic kidney disease with stage 1 through stage 4 chronic kidney disease, or unspecified chronic kidney disease; N18.9 Chronic kidney disease, unspecified; E78.5 Hyperlipidemia, unspecified; Z96.643 Presence of artificial hip joint, bilateral; Z96.653 Presence of artificial knee joint, bilateral; Z79.4 Long term (current) use of insulin; Z79.899 Other long term (current) drug therapy; Z89.422 Acquired absence of other left toe(s); Y83.5 Amputation of limb(s) as the cause of abnormal reaction of the patient, or of later complication, without mention of misadventure at the time of the procedure
CPT/HCPCS: 11042; 36416; 82948; A6209; A6266; A4414; A6446

== ENCOUNTER 2018-07-29 09:58 | Day surgery (SDC) | payer MEDICARE, MEDICAID ==
[2018-07-29] MEDS ORDERED: LIDOcaine/PRILOcaine 5gm cream TP ONE ×2 (10:53→11:46)
--- NOTE | 2018-07-29 12:30 | NUR ---
Patient ambulated independently from [facility] and was admitted to outpatient wound care for physician visit with Richard Gusman MD. Dressing removed, wound cleansed and Emla cream applied per order. Patient assessed for changes in conditions, medications and medical history. 1025 - blood glucose 177. Patient instructed that elevated blood sugars delay healing of the wound and can cause further complications including but not limited to amputation of toes or feet. 1150 - Dr. Gusman at bedside accompanied by RN. Wound assessed, time out performed by MD/RN. Wound debrided as detailed in the physician progress/procedure note. Plan of care discussed with patient. Dressings placed per MD orders. Patient instructed on the signs and symptoms of infection and to call the Wound Center if any occur or to go to the ED if we are closed: Increased pain in wound Increase in drainage from the wound Redness in the skin surrounding the wound Bleeding from the wound Temperature of 101 or greater Patient instructed that the weight of their body puts a large amount of pressure on their wounds. This pressure keeps the new tissue from growing and inhibits new blood vessels from forming. Explained that, if they continue to bear weight on a body part that has a wound, the time it takes to heal the wound increases, the wound may get worse or the wound may not heal at all. Patient verbalized understanding of all discharge instructions and plan of care and ambulated independently out to [facility] in stable condition with no sign or symptom of distress at time of discharge.
== END 2018-07-29 12:16 | disposition home or self-care (01) ==
LOC: WOUND CARE 09:58
PROVIDERS: ATTEND Surgery
DX: T87.89 Other complications of amputation stump (principal); E11.621 Type 2 diabetes mellitus with foot ulcer; L97.512 Non-pressure chronic ulcer of other part of right foot with fat layer exposed; E11.65 Type 2 diabetes mellitus with hyperglycemia; E11.42 Type 2 diabetes mellitus with diabetic polyneuropathy; E11.69 Type 2 diabetes mellitus with other specified complication; M86.8X7 Other osteomyelitis, ankle and foot; E11.22 Type 2 diabetes mellitus with diabetic chronic kidney disease; I12.9 Hypertensive chronic kidney disease with stage 1 through stage 4 chronic kidney disease, or unspecified chronic kidney disease; N18.9 Chronic kidney disease, unspecified; E78.5 Hyperlipidemia, unspecified; Z96.643 Presence of artificial hip joint, bilateral; Z96.653 Presence of artificial knee joint, bilateral; Z79.4 Long term (current) use of insulin; Z79.899 Other long term (current) drug therapy; Z89.422 Acquired absence of other left toe(s); Y83.5 Amputation of limb(s) as the cause of abnormal reaction of the patient, or of later complication, without mention of misadventure at the time of the procedure
CPT/HCPCS: 11042; 36416; 82948; A6266; A6206; A6446

== ENCOUNTER 2018-07-31 10:15 | Outpatient (CLI) | payer MEDICARE, MEDICAID ==
--- NOTE | 2018-07-31 16:07 | NUR ---
Patient ambulated independently from lobby with crutches. Patient admitted to outpatient wound care clinic for nursing visit under direct supervision of . Dressing removed and wound cleansed. Patient assessed for changes in conditions, medications and medical history. Dressings applied per physician orders. Patient instructed on the signs and symptoms of infection and to call the Wound Center if any occur or to go to the ED if we are closed: Increased pain in wound Increase in drainage from the wound Redness in the skin surrounding the wound Bleeding from the wound Temperature of 101 or greater Patient instructed that the weight of their body puts a large amount of pressure on their wounds. This pressure keeps the new tissue from growing and inhibits new blood vessels from forming. Explained that, if they continue to bear weight on a body part that has a wound, the time it takes to heal the wound increases, the wound may get worse or the wound may not heal at all. Patient verbalized understanding of all discharge instructions and plan of care and ambulated independently out to [facility] in stable condition with no sign or symptom of distress at time of discharge. Addendum: 07/31/18 at 1612 by Hilda Spencer RN Amended: Links added.
== END 2018-07-31 12:25 | disposition home or self-care (01) ==
LOC: WOUND CARE 10:15 → EDSTATUS 10:30 → WOUND CARE 12:25
PROVIDERS: ATTEND Surgery
DX: T87.89 Other complications of amputation stump (principal); E11.621 Type 2 diabetes mellitus with foot ulcer; L97.512 Non-pressure chronic ulcer of other part of right foot with fat layer exposed; E11.65 Type 2 diabetes mellitus with hyperglycemia; E11.42 Type 2 diabetes mellitus with diabetic polyneuropathy; E11.69 Type 2 diabetes mellitus with other specified complication; M86.8X7 Other osteomyelitis, ankle and foot; E11.22 Type 2 diabetes mellitus with diabetic chronic kidney disease; I12.9 Hypertensive chronic kidney disease with stage 1 through stage 4 chronic kidney disease, or unspecified chronic kidney disease; N18.9 Chronic kidney disease, unspecified; E78.5 Hyperlipidemia, unspecified; Z96.643 Presence of artificial hip joint, bilateral; Z96.653 Presence of artificial knee joint, bilateral; Z79.4 Long term (current) use of insulin; Z79.899 Other long term (current) drug therapy; Z89.422 Acquired absence of other left toe(s); Y83.5 Amputation of limb(s) as the cause of abnormal reaction of the patient, or of later complication, without mention of misadventure at the time of the procedure
CPT/HCPCS: 82948; A6266; G0463; A6206; A6446

== ENCOUNTER 2018-08-04 10:20 | Day surgery (SDC) | payer MEDICARE, MEDICAID ==
[2018-08-04] MEDS ORDERED: LIDOcaine/PRILOcaine 5gm cream TP ONE (11:30)
--- NOTE | 2018-08-04 15:02 | NUR ---
Patient ambulated independently from [facility] and was admitted to outpatient wound care for physician visit. Dressings removed, wound cleansed. Patient assessment completed with review of patient's medical history and current medications. Blood Glucose= 419@ 1115 1100-Dr. Gusman at bedside accompanied by RN. Wound assessed, time-out performed by MD/RN. Wound debrided as detailed in the physician progress/procedure note. Plan of care discussed with patient. Dressings placed per MD orders. Patient instructed on the signs and symptoms of infection and to call the Wound Center if any occur or to go to the ED if we are closed: Increased pain in the wound Increase in drainage from the wound Redness in the skin surrounding the wound Bleeding from the wound Temperature of 101F or greater Patient instructed that the weight of their body puts a large amount of pressure on their wounds. This pressure keeps the new tissue from growing and inhibits new blood vessels from forming. Explained that, if they continue to bear weight on a body part that has a wound, the time it takes to heal the wound increases, the wound may get worse, or the wound may not heal at all. Patient educated re. importance of monitoring blood sugars and maintaining proper nutrition. Patient verbalized understanding of all discharge instructions and plan of care. Patient ambulated independently out to [facility] in stable condition with no signs or symptoms of distress at time of discharge.
== END 2018-08-04 13:00 | disposition home or self-care (01) ==
LOC: WOUND CARE 10:20
PROVIDERS: ATTEND Surgery
DX: T87.89 Other complications of amputation stump (principal); E11.621 Type 2 diabetes mellitus with foot ulcer; L97.512 Non-pressure chronic ulcer of other part of right foot with fat layer exposed; E11.65 Type 2 diabetes mellitus with hyperglycemia; E11.42 Type 2 diabetes mellitus with diabetic polyneuropathy; E11.69 Type 2 diabetes mellitus with other specified complication; M86.8X7 Other osteomyelitis, ankle and foot; E11.22 Type 2 diabetes mellitus with diabetic chronic kidney disease; I12.9 Hypertensive chronic kidney disease with stage 1 through stage 4 chronic kidney disease, or unspecified chronic kidney disease; N18.9 Chronic kidney disease, unspecified; E78.5 Hyperlipidemia, unspecified; Z96.643 Presence of artificial hip joint, bilateral; Z96.653 Presence of artificial knee joint, bilateral; Z79.4 Long term (current) use of insulin; Z79.899 Other long term (current) drug therapy; Z89.422 Acquired absence of other left toe(s); Y83.5 Amputation of limb(s) as the cause of abnormal reaction of the patient, or of later complication, without mention of misadventure at the time of the procedure
CPT/HCPCS: 36416; 82948; 97597; A6209; A6206; A6446

== ENCOUNTER 2018-08-11 09:45 | Day surgery (SDC) | payer MEDICARE, MEDICAID ==
[2018-08-11] MEDS ORDERED: LIDOcaine/PRILOcaine 5gm cream TP ONE (11:50)
--- NOTE | 2018-08-11 12:15 | NUR ---
Patient ambulated independently from [facility] and was admitted to outpatient wound care for physician visit with Richard Gusman MD. Dressing removed, wound cleansed and Emla cream applied per order. Patient assessed for changes in conditions, medications and medical history. 1110 - blood glucose 386. Patient instructed that elevated blood sugars delay healing of the wound and can cause further complications including but not limited to amputation of toes or feet. 1150 - Dr. Gusman at bedside accompanied by RN. Wound assessed, time out performed by MD/RN. Wound debrided and procedure performed as detailed in the physician progress/procedure note. Plan of care discussed with patient. Dressings placed per MD orders. Patient instructed on the signs and symptoms of infection and to call the Wound Center if any occur or to go to the ED if we are closed: Increased pain in wound Increase in drainage from the wound Redness in the skin surrounding the wound Bleeding from the wound Temperature of 101 or greater Patient instructed that the weight of their body puts a large amount of pressure on their wounds. This pressure keeps the new tissue from growing and inhibits new blood vessels from forming. Explained that, if they continue to bear weight on a body part that has a wound, the time it takes to heal the wound increases, the wound may get worse or the wound may not heal at all. Patient verbalized understanding of all discharge instructions and plan of care and ambulated independently out to [facility] in stable condition with no sign or symptom of distress at time of discharge.
== END 2018-08-11 12:35 | disposition home or self-care (01) ==
LOC: WOUND CARE 09:45
PROVIDERS: ATTEND Surgery
DX: T87.89 Other complications of amputation stump (principal); E11.621 Type 2 diabetes mellitus with foot ulcer; L97.512 Non-pressure chronic ulcer of other part of right foot with fat layer exposed; E11.65 Type 2 diabetes mellitus with hyperglycemia; E11.42 Type 2 diabetes mellitus with diabetic polyneuropathy; E11.69 Type 2 diabetes mellitus with other specified complication; M86.8X7 Other osteomyelitis, ankle and foot; E11.22 Type 2 diabetes mellitus with diabetic chronic kidney disease; I12.9 Hypertensive chronic kidney disease with stage 1 through stage 4 chronic kidney disease, or unspecified chronic kidney disease; N18.9 Chronic kidney disease, unspecified; E78.5 Hyperlipidemia, unspecified; Z96.643 Presence of artificial hip joint, bilateral; Z96.653 Presence of artificial knee joint, bilateral; Z79.4 Long term (current) use of insulin; Z79.899 Other long term (current) drug therapy; Z89.422 Acquired absence of other left toe(s); Y83.5 Amputation of limb(s) as the cause of abnormal reaction of the patient, or of later complication, without mention of misadventure at the time of the procedure
CPT/HCPCS: 15275; 36416; 82948; A6209; A6222; Q4187; A6250; A6446

== ENCOUNTER 2018-08-18 10:05 | Day surgery (SDC) | payer MEDICARE, MEDICAID ==
[~2018-08-18 10:05] MED LIST changes: -AMOX-580 PO
[2018-08-18] MEDS ORDERED: LIDOcaine/PRILOcaine 5gm cream TP ONE (12:04)
[2018-08-18] MEDS ORDERED: gentamicin 0.1% topical ointment 15gm TP ONE ×2 (12:12→12:29)
--- NOTE | 2018-08-18 12:45 | NUR ---
Patient ambulated with cane from [facility] and was admitted to outpatient wound care for physician visit with Richard Gusman MD. Dressing removed, wound cleansed and Emla cream applied per order. Patient assessed for changes in conditions, medications and medical history. 1140 - blood glucose 456. Patient instructed that elevated blood sugars delay healing of the wound and can cause further complications including but not limited to amputation of toes or feet. 1200 - Dr. Gusman at bedside accompanied by RN. Wound assessed, time out performed by MD/RN. Wound debrided as detailed in the physician progress/procedure note. Plan of care discussed with patient. Dressings placed per MD orders. Patient instructed on the signs and symptoms of infection and to call the Wound Center if any occur or to go to the ED if we are closed: Increased pain in wound Increase in drainage from the wound Redness in the skin surrounding the wound Bleeding from the wound Temperature of 101 or greater Patient instructed that the weight of their body puts a large amount of pressure on their wounds. This pressure keeps the new tissue from growing and inhibits new blood vessels from forming. Explained that, if they continue to bear weight on a body part that has a wound, the time it takes to heal the wound increases, the wound may get worse or the wound may not heal at all. Patient verbalized understanding of all discharge instructions and plan of care and ambulated with cane out to [facility] in stable condition with no sign or symptom of distress at time of discharge.
== END 2018-08-18 12:54 | disposition home or self-care (01) ==
LOC: WOUND CARE 10:05
PROVIDERS: ATTEND Surgery
DX: T87.89 Other complications of amputation stump (principal); E11.621 Type 2 diabetes mellitus with foot ulcer; L97.512 Non-pressure chronic ulcer of other part of right foot with fat layer exposed; E11.65 Type 2 diabetes mellitus with hyperglycemia; E11.42 Type 2 diabetes mellitus with diabetic polyneuropathy; E11.69 Type 2 diabetes mellitus with other specified complication; M86.8X7 Other osteomyelitis, ankle and foot; E11.22 Type 2 diabetes mellitus with diabetic chronic kidney disease; I12.9 Hypertensive chronic kidney disease with stage 1 through stage 4 chronic kidney disease, or unspecified chronic kidney disease; N18.9 Chronic kidney disease, unspecified; E78.5 Hyperlipidemia, unspecified; Z96.643 Presence of artificial hip joint, bilateral; Z96.653 Presence of artificial knee joint, bilateral; Z79.4 Long term (current) use of insulin; Z79.899 Other long term (current) drug therapy; Z89.422 Acquired absence of other left toe(s); Y83.5 Amputation of limb(s) as the cause of abnormal reaction of the patient, or of later complication, without mention of misadventure at the time of the procedure
CPT/HCPCS: 11042; 36416; 82948; A6266; A6206; A6446

== ENCOUNTER 2018-08-21 10:17 | Day surgery (SDC) | payer MEDICARE, MEDICAID ==
[2018-08-21] MEDS ORDERED: gentamicin 0.1% topical ointment 15gm TP ONE (12:25)
--- NOTE | 2018-08-21 16:33 | NUR ---
Patient ambulated independently from lobby with crutches. Patient was admitted to outpatient wound care for physician visit with Richard Gusman MD. Dressing removed, wound cleansed and Emla cream applied per order. Patient assessed for changes in conditions, medications and medical history. Dr. Gusman at bedside accompanied by RN. Wound assessed, time out performed by MD/RN. Wound debrided as detailed in the physician progress/procedure note. Plan of care discussed with patient. Dressings placed per MD orders. Patient instructed on the signs and symptoms of infection and to call the Wound Center if any occur or to go to the ED if we are closed: Increased pain in wound Increase in drainage from the wound Redness in the skin surrounding the wound Bleeding from the wound Temperature of 101 or greater Patient instructed that elevated blood sugars delay healing of the wound and can cause further complications including but not limited to amputation of toes or feet. Patient instructed that the weight of their body puts a large amount of pressure on their wounds. This pressure keeps the new tissue from growing and inhibits new blood vessels from forming. Explained that, if they continue to bear weight on a body part that has a wound, the time it takes to heal the wound increases, the wound may get worse or the wound may not heal at all. Patient verbalized understanding of all discharge instructions and plan of care and ambulated independently out to [facility] in stable condition with no sign or symptom of distress at time of discharge. Addendum: 08/21/18 at 1637 by Hilda Spencer RN Amended: Links added.
== END 2018-08-21 13:08 | disposition home or self-care (01) ==
LOC: WOUND CARE 10:17
PROVIDERS: ATTEND Surgery
DX: T87.89 Other complications of amputation stump (principal); E11.621 Type 2 diabetes mellitus with foot ulcer; L97.512 Non-pressure chronic ulcer of other part of right foot with fat layer exposed; E11.65 Type 2 diabetes mellitus with hyperglycemia; E11.42 Type 2 diabetes mellitus with diabetic polyneuropathy; E11.69 Type 2 diabetes mellitus with other specified complication; M86.8X7 Other osteomyelitis, ankle and foot; E11.22 Type 2 diabetes mellitus with diabetic chronic kidney disease; I12.9 Hypertensive chronic kidney disease with stage 1 through stage 4 chronic kidney disease, or unspecified chronic kidney disease; N18.9 Chronic kidney disease, unspecified; E78.5 Hyperlipidemia, unspecified; Z96.643 Presence of artificial hip joint, bilateral; Z96.653 Presence of artificial knee joint, bilateral; Z79.4 Long term (current) use of insulin; Z79.899 Other long term (current) drug therapy; Z89.422 Acquired absence of other left toe(s); Y83.5 Amputation of limb(s) as the cause of abnormal reaction of the patient, or of later complication, without mention of misadventure at the time of the procedure
CPT/HCPCS: 36416; 82948; 97597; A6266; A6206

== ENCOUNTER 2018-11-07 09:20 | Day surgery (SDC) | payer MEDICAID, MEDICARE, OTHER ==
[~2018-11-07 09:20] MED LIST changes: -HYDR-3972 PO; -INSU100V9 SQ; -NOVRI SQ; +OMEP40CA13 PO; -OMEP40CA37 PO
[2018-11-07] MEDS ORDERED: LIDOcaine 2% 5ml jelly ONE (09:39)
--- NOTE | 2018-11-07 13:27 | NUR ---
Patient arrived safely into [facility] via ambulation. Patient admitted to outpatient wound care clinic for visit with Richard Gusman MD. Dressing removed, wound cleansed and lidocaine applied per order. Patient assessed and medications and medical history reviewed. Dr. Gusman at bedside accompanied by RN. Wound assessed, time out performed by MD/RN. Wound debrided as detailed in the physician progress/procedure note. Plan of care discussed with patient. Dressings placed per MD orders. Patient instructed on the signs and symptoms of infection and to call the Wound Center if any occur or to go to the ED if we are closed: Increased pain in wound Increase in drainage from the wound Redness in the skin surrounding the wound Bleeding from the wound Temperature of 101 or greater Patient instructed that the weight of their body puts a large amount of pressure on their wounds. This pressure keeps the new tissue from growing and inhibits new blood vessels from forming. Explained that, if they continue to bear weight on a body part that has a wound, the time it takes to heal the wound increases, the wound may get worse or the wound may not heal at all. Patient verbalized understanding of all discharge instructions and plan of care. Patient left in stable condition with no sign or symptom of distress at time of discharge. Addendum: 11/07/18 at 1331 by Nicolas Melendez RN Amended: Links added.
== END 2018-11-07 10:27 | disposition home or self-care (01) ==
LOC: WOUND CARE 09:20
PROVIDERS: ATTEND Surgery
DX: T87.89 Other complications of amputation stump (principal); E11.621 Type 2 diabetes mellitus with foot ulcer; L97.512 Non-pressure chronic ulcer of other part of right foot with fat layer exposed; E11.65 Type 2 diabetes mellitus with hyperglycemia; E11.42 Type 2 diabetes mellitus with diabetic polyneuropathy; E11.69 Type 2 diabetes mellitus with other specified complication; M86.8X7 Other osteomyelitis, ankle and foot; E11.22 Type 2 diabetes mellitus with diabetic chronic kidney disease; I12.9 Hypertensive chronic kidney disease with stage 1 through stage 4 chronic kidney disease, or unspecified chronic kidney disease; N18.9 Chronic kidney disease, unspecified; E78.5 Hyperlipidemia, unspecified; Z96.643 Presence of artificial hip joint, bilateral; Z96.653 Presence of artificial knee joint, bilateral; Z79.4 Long term (current) use of insulin; Z79.899 Other long term (current) drug therapy; Z89.422 Acquired absence of other left toe(s); Y83.8 Other surgical procedures as the cause of abnormal reaction of the patient, or of later complication, without mention of misadventure at the time of the procedure
CPT/HCPCS: 36416; 82948; 97597; A6223; A4663; A6446

== ENCOUNTER 2018-11-14 08:15 | Day surgery (SDC) | payer MEDICAID, MEDICARE, OTHER ==
[2018-11-14] MEDS ORDERED: LIDOcaine 2% 5ml jelly ONE (09:03)
--- NOTE | 2018-11-14 10:30 | NUR ---
Patient arrived via wheelchair from [facility] and was admitted to outpatient wound care for physician visit with Richard Gusman MD. Dressing removed, wound cleansed. Patient assessed for changes in conditions, medications and medical history. 0849 - blood glucose 162. Patient instructed that elevated blood sugars delay healing of the wound and can cause further complications including but not limited to amputation of toes or feet. 0948 - Dr. Gusman at bedside accompanied by RN. Wound assessed, time out performed by MD/RN. Wound debrided as detailed in the physician progress/procedure note. Plan of care discussed with patient. Dressings placed per MD orders. Patient instructed on the signs and symptoms of infection and to call the Wound Center if any occur or to go to the ED if we are closed: Increased pain in wound Increase in drainage from the wound Redness in the skin surrounding the wound Bleeding from the wound Temperature of 101 or greater Patient instructed that the weight of their body puts a large amount of pressure on their wounds. This pressure keeps the new tissue from growing and inhibits new blood vessels from forming. Explained that, if they continue to bear weight on a body part that has a wound, the time it takes to heal the wound increases, the wound may get worse or the wound may not heal at all. Patient verbalized understanding of all discharge instructions and plan of care and exited via wheelchair out to [facility] in stable condition with no sign or symptom of distress at time of discharge.
== END 2018-11-14 10:11 | disposition home or self-care (01) ==
LOC: WOUND CARE 08:15
PROVIDERS: ATTEND Surgery
DX: T87.89 Other complications of amputation stump (principal); E11.621 Type 2 diabetes mellitus with foot ulcer; L97.512 Non-pressure chronic ulcer of other part of right foot with fat layer exposed; E11.65 Type 2 diabetes mellitus with hyperglycemia; E11.42 Type 2 diabetes mellitus with diabetic polyneuropathy; E11.69 Type 2 diabetes mellitus with other specified complication; M86.8X7 Other osteomyelitis, ankle and foot; E11.22 Type 2 diabetes mellitus with diabetic chronic kidney disease; I12.9 Hypertensive chronic kidney disease with stage 1 through stage 4 chronic kidney disease, or unspecified chronic kidney disease; N18.9 Chronic kidney disease, unspecified; E78.5 Hyperlipidemia, unspecified; Z96.643 Presence of artificial hip joint, bilateral; Z96.653 Presence of artificial knee joint, bilateral; Z79.4 Long term (current) use of insulin; Z79.899 Other long term (current) drug therapy; Z89.422 Acquired absence of other left toe(s); Y83.8 Other surgical procedures as the cause of abnormal reaction of the patient, or of later complication, without mention of misadventure at the time of the procedure
CPT/HCPCS: 36416; 82948; 97597; A6209; A6223; A4663; A6021; A6234; A6446

== ENCOUNTER 2018-11-20 09:21 | Day surgery (SDC) | payer MEDICARE, MEDICAID ==
[2018-11-20] MEDS ORDERED: LIDOcaine 2% 5ml jelly ONE (11:15)
== END 2018-11-20 11:46 | disposition home or self-care (01) ==
LOC: WOUND CARE 09:21
PROVIDERS: ATTEND Surgery
DX: T87.89 Other complications of amputation stump (principal); E11.621 Type 2 diabetes mellitus with foot ulcer; L97.512 Non-pressure chronic ulcer of other part of right foot with fat layer exposed; E11.65 Type 2 diabetes mellitus with hyperglycemia; E11.42 Type 2 diabetes mellitus with diabetic polyneuropathy; E11.69 Type 2 diabetes mellitus with other specified complication; M86.8X7 Other osteomyelitis, ankle and foot; E11.22 Type 2 diabetes mellitus with diabetic chronic kidney disease; I12.9 Hypertensive chronic kidney disease with stage 1 through stage 4 chronic kidney disease, or unspecified chronic kidney disease; N18.9 Chronic kidney disease, unspecified; E78.5 Hyperlipidemia, unspecified; Z96.643 Presence of artificial hip joint, bilateral; Z96.653 Presence of artificial knee joint, bilateral; Z79.4 Long term (current) use of insulin; Z79.899 Other long term (current) drug therapy; Z89.422 Acquired absence of other left toe(s); Y83.8 Other surgical procedures as the cause of abnormal reaction of the patient, or of later complication, without mention of misadventure at the time of the procedure
CPT/HCPCS: 11042; 11045; 36416; 82948; A6209; A6222; A6223; A4663; A6021; A6212; A6446

== ENCOUNTER 2018-11-27 09:14 | Day surgery (SDC) | payer MEDICARE, MEDICAID | END 2018-11-27 11:40 | disposition home or self-care (01) | LOC: WOUND CARE 09:14 | PROVIDERS: ATTEND Surgery | DX: T87.89 Other complications of amputation stump (principal); E11.621 Type 2 diabetes mellitus with foot ulcer; L97.412 Non-pressure chronic ulcer of right heel and midfoot with fat layer exposed; L97.512 Non-pressure chronic ulcer of other part of right foot with fat layer exposed; E11.65 Type 2 diabetes mellitus with hyperglycemia; E11.42 Type 2 diabetes mellitus with diabetic polyneuropathy; E11.69 Type 2 diabetes mellitus with other specified complication; M86.8X7 Other osteomyelitis, ankle and foot; E11.22 Type 2 diabetes mellitus with diabetic chronic kidney disease; I12.9 Hypertensive chronic kidney disease with stage 1 through stage 4 chronic kidney disease, or unspecified chronic kidney disease; N18.9 Chronic kidney disease, unspecified; E78.5 Hyperlipidemia, unspecified; Z96.643 Presence of artificial hip joint, bilateral; Z96.653 Presence of artificial knee joint, bilateral; Z79.4 Long term (current) use of insulin; Z79.899 Other long term (current) drug therapy; Z89.422 Acquired absence of other left toe(s); Y83.8 Other surgical procedures as the cause of abnormal reaction of the patient, or of later complication, without mention of misadventure at the time of the procedure | CPT/HCPCS: 11045; 82948; A4663; A6021; A6154; A6212; A6243 ==

== ENCOUNTER 2018-12-04 09:35 | Day surgery (SDC) | payer MEDICARE, MEDICAID ==
[2018-12-04] MEDS ORDERED: LIDOcaine 2% 5ml jelly ONE (11:27)
== END 2018-12-04 12:49 | disposition home or self-care (01) ==
LOC: WOUND CARE 09:35
PROVIDERS: ATTEND Surgery
DX: T87.89 Other complications of amputation stump (principal); E11.621 Type 2 diabetes mellitus with foot ulcer; L97.412 Non-pressure chronic ulcer of right heel and midfoot with fat layer exposed; L97.512 Non-pressure chronic ulcer of other part of right foot with fat layer exposed; E11.65 Type 2 diabetes mellitus with hyperglycemia; E11.42 Type 2 diabetes mellitus with diabetic polyneuropathy; E11.69 Type 2 diabetes mellitus with other specified complication; M86.8X7 Other osteomyelitis, ankle and foot; E11.22 Type 2 diabetes mellitus with diabetic chronic kidney disease; I12.9 Hypertensive chronic kidney disease with stage 1 through stage 4 chronic kidney disease, or unspecified chronic kidney disease; N18.9 Chronic kidney disease, unspecified; E78.5 Hyperlipidemia, unspecified; Z96.643 Presence of artificial hip joint, bilateral; Z96.653 Presence of artificial knee joint, bilateral; Z79.4 Long term (current) use of insulin; Z79.899 Other long term (current) drug therapy; Z89.422 Acquired absence of other left toe(s); Y83.8 Other surgical procedures as the cause of abnormal reaction of the patient, or of later complication, without mention of misadventure at the time of the procedure
CPT/HCPCS: 11042; 11045; 36416; 82948; 97605; A6209; A4456; A4663; A6021; A6154

== ENCOUNTER 2018-12-11 09:21 | Day surgery (SDC) | payer MEDICARE, MEDICAID ==
[2018-12-11] MEDS ORDERED: LIDOcaine 2% 5ml jelly ONE ×2 (09:49→10:01)
== END 2018-12-11 11:37 | disposition home or self-care (01) ==
LOC: WOUND CARE 09:21
PROVIDERS: ATTEND Surgery
DX: T87.89 Other complications of amputation stump (principal); E11.621 Type 2 diabetes mellitus with foot ulcer; L97.412 Non-pressure chronic ulcer of right heel and midfoot with fat layer exposed; L97.512 Non-pressure chronic ulcer of other part of right foot with fat layer exposed; E11.65 Type 2 diabetes mellitus with hyperglycemia; E11.42 Type 2 diabetes mellitus with diabetic polyneuropathy; E11.69 Type 2 diabetes mellitus with other specified complication; M86.8X7 Other osteomyelitis, ankle and foot; E11.22 Type 2 diabetes mellitus with diabetic chronic kidney disease; I12.9 Hypertensive chronic kidney disease with stage 1 through stage 4 chronic kidney disease, or unspecified chronic kidney disease; N18.9 Chronic kidney disease, unspecified; E78.5 Hyperlipidemia, unspecified; Z96.643 Presence of artificial hip joint, bilateral; Z96.653 Presence of artificial knee joint, bilateral; Z79.4 Long term (current) use of insulin; Z79.899 Other long term (current) drug therapy; Z89.422 Acquired absence of other left toe(s); Y83.8 Other surgical procedures as the cause of abnormal reaction of the patient, or of later complication, without mention of misadventure at the time of the procedure
CPT/HCPCS: 15275; A6223; Q4106; A4663

== ENCOUNTER 2018-12-18 09:45 | Day surgery (SDC) | payer MEDICARE, MEDICAID ==
[2018-12-18] MEDS ORDERED: LIDOcaine 2% 5ml jelly ONE (10:02)
== END 2018-12-18 12:25 | disposition home or self-care (01) ==
LOC: WOUND CARE 09:45
PROVIDERS: ATTEND Surgery
DX: T87.89 Other complications of amputation stump (principal); E11.621 Type 2 diabetes mellitus with foot ulcer; L97.412 Non-pressure chronic ulcer of right heel and midfoot with fat layer exposed; L97.512 Non-pressure chronic ulcer of other part of right foot with fat layer exposed; E11.65 Type 2 diabetes mellitus with hyperglycemia; E11.42 Type 2 diabetes mellitus with diabetic polyneuropathy; E11.69 Type 2 diabetes mellitus with other specified complication; M86.8X7 Other osteomyelitis, ankle and foot; E11.22 Type 2 diabetes mellitus with diabetic chronic kidney disease; I12.9 Hypertensive chronic kidney disease with stage 1 through stage 4 chronic kidney disease, or unspecified chronic kidney disease; N18.9 Chronic kidney disease, unspecified; E78.5 Hyperlipidemia, unspecified; Z96.643 Presence of artificial hip joint, bilateral; Z96.653 Presence of artificial knee joint, bilateral; Z79.4 Long term (current) use of insulin; Z79.899 Other long term (current) drug therapy; Z89.422 Acquired absence of other left toe(s); Y83.8 Other surgical procedures as the cause of abnormal reaction of the patient, or of later complication, without mention of misadventure at the time of the procedure
CPT/HCPCS: 15275; 36416; 82948; Q4106; A4663

== ENCOUNTER 2018-12-25 01:12 | Emergency (ER) | payer MEDICARE, MEDICAID ==
[~2018-12-25] VITALS: Ht 172.7 cm; Wt 95.5 kg
--- NOTE | 2018-12-25 01:35 | NUR ---
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
--- NOTE | 2018-12-25 02:20 | NUR ---
LABS DRAWN CHEST XRAY COMPLETE
[2018-12-25 02:42] LABS: BASOPHILS # (AUTO) 0.1 X10'3 (0-0.2); BASOPHILS % (AUTO) 0.6 % (0-1); EOSINOPHILS # (AUTO) 0.3 X10'3 (0-0.9); EOSINOPHILS % (AUTO) 3.6 % (0-6); HEMATOCRIT 36.6 % (42.0-52.0); HEMOGLOBIN 12.3 g/dl (14.0-17.9); LYMPHOCYTES # (AUTO) 1.4 X10'3 (1.1-4.8); MEAN CORPUSCULAR HEMOGLOBIN 28.5 PG (27.0-31.0); MEAN CORPUSCULAR HGB CONC 33.6 g/dL (33.0-36.5); MEAN CORPUSCULAR VOLUME 84.7 FL (78-98); MEAN PLATELET VOLUME 7.7 FL (7.4-10.4); MONOCYTES # (AUTO) 0.6 X10'3 (0-0.9); MONOCYTES % (AUTO) 6.5 % (2-12); NEUTROPHILS # (AUTO) 6.4 X10'3 (1.8-7.7); NEUTROPHILS % (AUTO) 73.3 % (42-75); PLATELET COUNT 242 X10'3 (140-440); RED BLOOD COUNT 4.32 X10'6 (4.70-6.10); RED CELL DISTRIBUTION WIDTH 16.7 % (11.5-14.5); WHITE BLOOD COUNT 8.7 X10'3 (4.5-11.0)
[2018-12-25 02:47] LABS: ALANINE AMINOTRANSFERASE 20 U/L (12-78); ALBUMIN 3.4 G/DL (3.4-5.0); ALBUMIN/GLOBULIN RATIO 0.9 (1.1-1.5); ALKALINE PHOSPHATASE 65 IU/L (46-116); ANION GAP 8 (8-16); ASPARTATE AMINO TRANSFERASE 15 U/L (10-37); BILIRUBIN,TOTAL 0.3 MG/DL (0.1-1.0); BLOOD UREA NITROGEN 18 MG/DL (7-18); BUN/CREATININE RATIO 14.2 (5.4-32.0); CALCIUM 8.7 MG/DL (8.5-10.1); CHLORIDE 103 MMOL/L (99-107); CREATININE 1.27 MG/DL (0.60-1.10); GLUCOSE 251 MG/DL (70-104); POTASSIUM 4.2 MMOL/L (3.5-5.1); SODIUM 139 MMOL/L (135-145); TOTAL PROTEIN 7.2 G/DL (6.4-8.2); eGFR 57 ML/MIN
--- NOTE | 2018-12-25 03:30 | NUR ---
RADHA GIRALDO PHONED TO CHECK PT STATUS
--- NOTE | 2018-12-25 04:00 | NUR ---
PT ASSISTED TO DANGLE AND THEN WALKED INDEPENDANTLY WITH STEADY GAIT TO BR. SPO2 AMBULATING WITH NO O2 97% AND HR 101. DR. WILLOUGHBY UPDATED.
--- NOTE | 2018-12-25 04:39 | NUR ---
PT UP OUT OF BED TO BATHROOM FOR BM STEADY GAIT NO INCREASED SOB WITH AMBULATION. O2 SATS 96 ROOM AIR
[2018-12-25 05:15] LABS: TROPONIN I < 0.04 NG/ML (0.0-0.05)
[2018-12-25] MEDS ORDERED: AZIT-63 PO (05:28)
--- NOTE | 2018-12-25 06:02 | NUR ---
PHONED [facility] AT [facility] TO GIVE REPORT GIVEN TO RHEA . ASKED ABOUT TRANSPORTATION BACK TO FACILITY [facility] CALLED FOR TRANSPORTATION DISCHARGED INSTRUCTIONS GIVEN TO [facility]
--- NOTE | 2018-12-25 06:11 | NUR ---
[facility] TO TRANSPORT PT BACK TO [facility] - ETA [id number] - [id number]
--- NOTE | 2018-12-25 06:30 | NUR ---
[facility] TO ARRIVE BY 0645AM
--- NOTE | 2018-12-25 06:37 | NUR ---
PT DISCHARGED ALL INSTRUCTIONS GIVEN : WHEN TO FOLLOW WITH PRIMARY MD AND ABX PRESCRIPTION GIVEN REVIEWED AND VERBALIZED UNDERSTANDING
[2018-12-25 06:55] VITALS: BP 141/64
== END 2018-12-25 06:57 | disposition home or self-care (01) ==
LOC: ER 01:12
DX: R06.02 Shortness of breath (principal); I12.9 Hypertensive chronic kidney disease with stage 1 through stage 4 chronic kidney disease, or unspecified chronic kidney disease; E11.22 Type 2 diabetes mellitus with diabetic chronic kidney disease; N18.9 Chronic kidney disease, unspecified; F12.90 Cannabis use, unspecified, uncomplicated; Z98.890 Other specified postprocedural states; Z88.8 Allergy status to other drugs, medicaments and biological substances; Z79.2 Long term (current) use of antibiotics; Z79.899 Other long term (current) drug therapy
CPT/HCPCS: 36415; 71045; 80053; 83605; 83880; 84484; 85025; 87040; 93005; 99284

== ENCOUNTER 2018-12-25 09:25 | Day surgery (SDC) | payer MEDICARE, MEDICAID ==
[~2018-12-25 09:25] MED LIST changes: +AZIT-63 PO
[2018-12-25] MEDS ORDERED: LIDOcaine 2% 5ml jelly ONE (09:51)
== END 2018-12-25 11:45 | disposition home or self-care (01) ==
LOC: WOUND CARE 09:25
PROVIDERS: ATTEND Surgery
DX: T87.89 Other complications of amputation stump (principal); E11.621 Type 2 diabetes mellitus with foot ulcer; L97.412 Non-pressure chronic ulcer of right heel and midfoot with fat layer exposed; L97.512 Non-pressure chronic ulcer of other part of right foot with fat layer exposed; E11.65 Type 2 diabetes mellitus with hyperglycemia; E11.42 Type 2 diabetes mellitus with diabetic polyneuropathy; E11.69 Type 2 diabetes mellitus with other specified complication; M86.8X7 Other osteomyelitis, ankle and foot; E11.22 Type 2 diabetes mellitus with diabetic chronic kidney disease; I12.9 Hypertensive chronic kidney disease with stage 1 through stage 4 chronic kidney disease, or unspecified chronic kidney disease; N18.9 Chronic kidney disease, unspecified; E78.5 Hyperlipidemia, unspecified; Z96.643 Presence of artificial hip joint, bilateral; Z96.653 Presence of artificial knee joint, bilateral; Z79.4 Long term (current) use of insulin; Z79.899 Other long term (current) drug therapy; Z89.422 Acquired absence of other left toe(s); Y83.8 Other surgical procedures as the cause of abnormal reaction of the patient, or of later complication, without mention of misadventure at the time of the procedure
CPT/HCPCS: 15275; 36416; 82948; A6209; A6223; Q4106; 36415; 71045; 80053; 83605; 83880; 84484; 85025; 87040; 93005; 99284; A6250; A6446

== ENCOUNTER 2019-01-01 08:40 | Day surgery (SDC) | payer MEDICARE, MEDICAID ==
[2019-01-01] MEDS ORDERED: LIDOcaine 2% 5ml jelly ONE (09:35)
== END 2019-01-01 10:55 | disposition home or self-care (01) ==
LOC: WOUND CARE 08:40
PROVIDERS: ATTEND Surgery
DX: T87.89 Other complications of amputation stump (principal); E11.621 Type 2 diabetes mellitus with foot ulcer; L97.412 Non-pressure chronic ulcer of right heel and midfoot with fat layer exposed; L97.512 Non-pressure chronic ulcer of other part of right foot with fat layer exposed; E11.65 Type 2 diabetes mellitus with hyperglycemia; E11.42 Type 2 diabetes mellitus with diabetic polyneuropathy; E11.69 Type 2 diabetes mellitus with other specified complication; M86.8X7 Other osteomyelitis, ankle and foot; E11.22 Type 2 diabetes mellitus with diabetic chronic kidney disease; I12.9 Hypertensive chronic kidney disease with stage 1 through stage 4 chronic kidney disease, or unspecified chronic kidney disease; N18.9 Chronic kidney disease, unspecified; E78.5 Hyperlipidemia, unspecified; Z96.643 Presence of artificial hip joint, bilateral; Z96.653 Presence of artificial knee joint, bilateral; Z79.4 Long term (current) use of insulin; Z79.899 Other long term (current) drug therapy; Z89.422 Acquired absence of other left toe(s); Y83.8 Other surgical procedures as the cause of abnormal reaction of the patient, or of later complication, without mention of misadventure at the time of the procedure
CPT/HCPCS: 36416; 82948; 97597; A6209; A6223; A4663; A6021; A6446

== ENCOUNTER 2019-01-08 08:20 | Day surgery (SDC) | payer MEDICARE, MEDICAID ==
[2019-01-08] MEDS ORDERED: LIDOcaine 2% 5ml jelly ONE (09:35)
== END 2019-01-08 11:07 | disposition home or self-care (01) ==
LOC: WOUND CARE 08:20
PROVIDERS: ATTEND Surgery
DX: T87.89 Other complications of amputation stump (principal); E11.621 Type 2 diabetes mellitus with foot ulcer; L97.412 Non-pressure chronic ulcer of right heel and midfoot with fat layer exposed; L97.512 Non-pressure chronic ulcer of other part of right foot with fat layer exposed; E11.65 Type 2 diabetes mellitus with hyperglycemia; E11.42 Type 2 diabetes mellitus with diabetic polyneuropathy; E11.69 Type 2 diabetes mellitus with other specified complication; M86.8X7 Other osteomyelitis, ankle and foot; E11.22 Type 2 diabetes mellitus with diabetic chronic kidney disease; I12.9 Hypertensive chronic kidney disease with stage 1 through stage 4 chronic kidney disease, or unspecified chronic kidney disease; N18.9 Chronic kidney disease, unspecified; E78.5 Hyperlipidemia, unspecified; Z96.643 Presence of artificial hip joint, bilateral; Z96.653 Presence of artificial knee joint, bilateral; Z79.4 Long term (current) use of insulin; Z79.899 Other long term (current) drug therapy; Z89.422 Acquired absence of other left toe(s); Y83.8 Other surgical procedures as the cause of abnormal reaction of the patient, or of later complication, without mention of misadventure at the time of the procedure
CPT/HCPCS: 15275; 82948; A6209; A6222; Q4106; A4663; A6154; A6446

== ENCOUNTER 2019-01-12 08:40 | Outpatient (CLI) | payer MEDICARE, MEDICAID | END 2019-01-12 10:57 | disposition home or self-care (01) | LOC: WOUND CARE 08:40 | PROVIDERS: ATTEND Surgery | DX: T87.89 Other complications of amputation stump (principal); E11.621 Type 2 diabetes mellitus with foot ulcer; L97.412 Non-pressure chronic ulcer of right heel and midfoot with fat layer exposed; L97.512 Non-pressure chronic ulcer of other part of right foot with fat layer exposed; E11.65 Type 2 diabetes mellitus with hyperglycemia; E11.42 Type 2 diabetes mellitus with diabetic polyneuropathy; E11.69 Type 2 diabetes mellitus with other specified complication; M86.8X7 Other osteomyelitis, ankle and foot; E11.22 Type 2 diabetes mellitus with diabetic chronic kidney disease; I12.9 Hypertensive chronic kidney disease with stage 1 through stage 4 chronic kidney disease, or unspecified chronic kidney disease; N18.9 Chronic kidney disease, unspecified; E78.5 Hyperlipidemia, unspecified; Z96.643 Presence of artificial hip joint, bilateral; Z96.653 Presence of artificial knee joint, bilateral; Z79.4 Long term (current) use of insulin; Z79.899 Other long term (current) drug therapy; Z89.422 Acquired absence of other left toe(s); Y83.8 Other surgical procedures as the cause of abnormal reaction of the patient, or of later complication, without mention of misadventure at the time of the procedure | CPT/HCPCS: 36416; 82948; 97605; A4663; A6021; A6154; A6212; A6446 ==

== ENCOUNTER 2019-01-15 09:30 | Outpatient (CLI) | payer MEDICARE, MEDICAID | END 2019-01-15 11:17 | disposition home or self-care (01) | LOC: WOUND CARE 09:30 | PROVIDERS: ATTEND Surgery | DX: T87.89 Other complications of amputation stump (principal); E11.621 Type 2 diabetes mellitus with foot ulcer; L97.412 Non-pressure chronic ulcer of right heel and midfoot with fat layer exposed; L97.512 Non-pressure chronic ulcer of other part of right foot with fat layer exposed; E11.65 Type 2 diabetes mellitus with hyperglycemia; E11.42 Type 2 diabetes mellitus with diabetic polyneuropathy; E11.69 Type 2 diabetes mellitus with other specified complication; M86.8X7 Other osteomyelitis, ankle and foot; E11.22 Type 2 diabetes mellitus with diabetic chronic kidney disease; I12.9 Hypertensive chronic kidney disease with stage 1 through stage 4 chronic kidney disease, or unspecified chronic kidney disease; N18.9 Chronic kidney disease, unspecified; E78.5 Hyperlipidemia, unspecified; Z96.643 Presence of artificial hip joint, bilateral; Z96.653 Presence of artificial knee joint, bilateral; Z79.4 Long term (current) use of insulin; Z79.899 Other long term (current) drug therapy; Z89.422 Acquired absence of other left toe(s); Y83.8 Other surgical procedures as the cause of abnormal reaction of the patient, or of later complication, without mention of misadventure at the time of the procedure | CPT/HCPCS: 36416; 82948; 97605; A4663; A6446 ==

== ENCOUNTER 2019-01-19 08:50 | Day surgery (SDC) | payer MEDICARE, MEDICAID ==
[~2019-01-19 08:50] MED LIST changes: -AZIT-63 PO
[2019-01-19] MEDS ORDERED: LIDOcaine 2% 5ml jelly ONE (09:39)
== END 2019-01-19 11:50 | disposition home or self-care (01) ==
LOC: WOUND CARE 08:50
PROVIDERS: ATTEND Surgery
DX: T87.89 Other complications of amputation stump (principal); E11.621 Type 2 diabetes mellitus with foot ulcer; L97.412 Non-pressure chronic ulcer of right heel and midfoot with fat layer exposed; L97.512 Non-pressure chronic ulcer of other part of right foot with fat layer exposed; E11.65 Type 2 diabetes mellitus with hyperglycemia; E11.42 Type 2 diabetes mellitus with diabetic polyneuropathy; E11.69 Type 2 diabetes mellitus with other specified complication; M86.8X7 Other osteomyelitis, ankle and foot; E11.22 Type 2 diabetes mellitus with diabetic chronic kidney disease; I12.9 Hypertensive chronic kidney disease with stage 1 through stage 4 chronic kidney disease, or unspecified chronic kidney disease; N18.9 Chronic kidney disease, unspecified; E78.5 Hyperlipidemia, unspecified; Z96.643 Presence of artificial hip joint, bilateral; Z96.653 Presence of artificial knee joint, bilateral; Z79.4 Long term (current) use of insulin; Z79.899 Other long term (current) drug therapy; Z89.422 Acquired absence of other left toe(s); Y83.5 Amputation of limb(s) as the cause of abnormal reaction of the patient, or of later complication, without mention of misadventure at the time of the procedure
CPT/HCPCS: 15275; 36416; 82948; A6209; A6222; Q4106; A4663; A6250; A6446

== ENCOUNTER 2019-01-22 08:15 | Day surgery (SDC) | payer MEDICARE, MEDICAID ==
[2019-01-22] MEDS ORDERED: dextrose ORAL solution 15 GM/59 ML bottle ONE (09:24)
[2019-01-22] MEDS ORDERED: LIDOcaine 2% 5ml jelly ONE (09:38)
== END 2019-01-22 10:42 | disposition home or self-care (01) ==
LOC: WOUND CARE 08:15
PROVIDERS: ATTEND Surgery
DX: T87.89 Other complications of amputation stump (principal); E11.621 Type 2 diabetes mellitus with foot ulcer; L97.412 Non-pressure chronic ulcer of right heel and midfoot with fat layer exposed; L97.512 Non-pressure chronic ulcer of other part of right foot with fat layer exposed; E11.65 Type 2 diabetes mellitus with hyperglycemia; E11.42 Type 2 diabetes mellitus with diabetic polyneuropathy; E11.69 Type 2 diabetes mellitus with other specified complication; M86.8X7 Other osteomyelitis, ankle and foot; E11.22 Type 2 diabetes mellitus with diabetic chronic kidney disease; I12.9 Hypertensive chronic kidney disease with stage 1 through stage 4 chronic kidney disease, or unspecified chronic kidney disease; N18.9 Chronic kidney disease, unspecified; E78.5 Hyperlipidemia, unspecified; Z96.643 Presence of artificial hip joint, bilateral; Z96.653 Presence of artificial knee joint, bilateral; Z79.4 Long term (current) use of insulin; Z79.899 Other long term (current) drug therapy; Z89.422 Acquired absence of other left toe(s); Y83.5 Amputation of limb(s) as the cause of abnormal reaction of the patient, or of later complication, without mention of misadventure at the time of the procedure
CPT/HCPCS: 36416; 82948; G0463

== ENCOUNTER 2019-01-29 08:40 | Day surgery (SDC) | payer MEDICARE, MEDICAID ==
[2019-01-29] MEDS ORDERED: LIDOcaine 2% 5ml jelly ONE (09:28)
== END 2019-01-29 10:30 | disposition home or self-care (01) ==
LOC: WOUND CARE 08:40
PROVIDERS: ATTEND Surgery
DX: T87.89 Other complications of amputation stump (principal); E11.621 Type 2 diabetes mellitus with foot ulcer; L97.412 Non-pressure chronic ulcer of right heel and midfoot with fat layer exposed; L97.512 Non-pressure chronic ulcer of other part of right foot with fat layer exposed; E11.65 Type 2 diabetes mellitus with hyperglycemia; E11.42 Type 2 diabetes mellitus with diabetic polyneuropathy; E11.69 Type 2 diabetes mellitus with other specified complication; M86.8X7 Other osteomyelitis, ankle and foot; E11.22 Type 2 diabetes mellitus with diabetic chronic kidney disease; I12.9 Hypertensive chronic kidney disease with stage 1 through stage 4 chronic kidney disease, or unspecified chronic kidney disease; N18.9 Chronic kidney disease, unspecified; E78.5 Hyperlipidemia, unspecified; Z96.643 Presence of artificial hip joint, bilateral; Z96.653 Presence of artificial knee joint, bilateral; Z79.4 Long term (current) use of insulin; Z79.899 Other long term (current) drug therapy; Z89.422 Acquired absence of other left toe(s); Y83.5 Amputation of limb(s) as the cause of abnormal reaction of the patient, or of later complication, without mention of misadventure at the time of the procedure
CPT/HCPCS: 36416; 82948; 97597; A4663; A6021; A6154; A6446

== ENCOUNTER 2019-02-05 08:20 | Day surgery (SDC) | payer MEDICARE, MEDICAID ==
[2019-02-05] MEDS ORDERED: LIDOcaine 2% 5ml jelly ONE (09:03)
== END 2019-02-05 10:33 | disposition home or self-care (01) ==
LOC: WOUND CARE 08:20
PROVIDERS: ATTEND Surgery
DX: T87.89 Other complications of amputation stump (principal); E11.621 Type 2 diabetes mellitus with foot ulcer; L97.412 Non-pressure chronic ulcer of right heel and midfoot with fat layer exposed; L97.512 Non-pressure chronic ulcer of other part of right foot with fat layer exposed; E11.65 Type 2 diabetes mellitus with hyperglycemia; E11.42 Type 2 diabetes mellitus with diabetic polyneuropathy; E11.69 Type 2 diabetes mellitus with other specified complication; M86.8X7 Other osteomyelitis, ankle and foot; E11.22 Type 2 diabetes mellitus with diabetic chronic kidney disease; I12.9 Hypertensive chronic kidney disease with stage 1 through stage 4 chronic kidney disease, or unspecified chronic kidney disease; N18.9 Chronic kidney disease, unspecified; E78.5 Hyperlipidemia, unspecified; Z96.643 Presence of artificial hip joint, bilateral; Z96.653 Presence of artificial knee joint, bilateral; Z79.4 Long term (current) use of insulin; Z79.899 Other long term (current) drug therapy; Z89.422 Acquired absence of other left toe(s); Y83.5 Amputation of limb(s) as the cause of abnormal reaction of the patient, or of later complication, without mention of misadventure at the time of the procedure
CPT/HCPCS: 36416; 82948; 97597; A6209; 36415; 80053; 80061; 81001; 83036; 84402; 84403; 84439; 84443; 85025; A4663; A6021; A6154; A6446

== ENCOUNTER 2019-02-05 11:00 | Outpatient (CLI) | payer MEDICARE, MEDICAID ==
[2019-02-05 11:42] LABS: BASOPHILS # (AUTO) 0.1 X10'3 (0-0.2); BASOPHILS % (AUTO) 0.8 % (0-1); EOSINOPHILS # (AUTO) 0.4 X10'3 (0-0.9); EOSINOPHILS % (AUTO) 5.5 % (0-6); HEMATOCRIT 42.7 % (42.0-52.0); HEMOGLOBIN 14.6 g/dl (14.0-17.9); LYMPHOCYTES # (AUTO) 3.2 X10'3 (1.1-4.8); LYMPHOCYTES % (AUTO) 45.5 % (21-51); MEAN CORPUSCULAR HEMOGLOBIN 29.2 PG (27.0-31.0); MEAN CORPUSCULAR HGB CONC 34.1 g/dL (33.0-36.5); MEAN CORPUSCULAR VOLUME 85.5 FL (78-98); MEAN PLATELET VOLUME 7.1 FL (7.4-10.4); MONOCYTES # (AUTO) 0.5 X10'3 (0-0.9); MONOCYTES % (AUTO) 7.1 % (2-12); NEUTROPHILS # (AUTO) 2.9 X10'3 (1.8-7.7); NEUTROPHILS % (AUTO) 41.1 % (42-75); PLATELET COUNT 305 X10'3 (140-440); RED CELL DISTRIBUTION WIDTH 15.8 % (11.5-14.5); WHITE BLOOD COUNT 6.9 X10'3 (4.5-11.0)
[2019-02-05 11:50] LABS: HEMOGLOBIN A1C 8.1 % (4.5-6.2)
[2019-02-05 12:15] LABS: ALANINE AMINOTRANSFERASE 29 U/L (12-78); ALBUMIN 3.7 G/DL (3.4-5.0); ALBUMIN/GLOBULIN RATIO 0.9 (1.1-1.5); ALKALINE PHOSPHATASE 96 IU/L (46-116); ANION GAP 5 (8-16); ASPARTATE AMINO TRANSFERASE 17 U/L (10-37); BILIRUBIN,TOTAL 0.3 MG/DL (0.1-1.0); BLOOD UREA NITROGEN 13 MG/DL (7-18); CALCIUM 8.7 MG/DL (8.5-10.1); CHLORIDE 106 MMOL/L (99-107); CHOL/HDL RATIO 2.6 (0.00-4.99); CHOLESTEROL 143 MG/DL (0-200); GLUCOSE 69 MG/DL (70-104); HDL CHOLESTEROL 54 MG/DL (35-60); LDL CHOLESTEROL 83 MG/DL (50-100); POTASSIUM 4.1 MMOL/L (3.5-5.1); SODIUM 144 MMOL/L (135-145); TOTAL CARBON DIOXIDE 32.9 MMOL/L (24-32); TOTAL PROTEIN 7.7 G/DL (6.4-8.2); TRIGLYCERIDES 57 MG/DL (20-135); eGFR 76 ML/MIN
[2019-02-05 12:31] LABS: CLARITY,URINE SLIGHTLY CLOUDY (Clear); COLOR,URINE STRAW (Yellow); GLUCOSE, URINE NEGATIVE (Neg); KETONES,URINE NEGATIVE (Neg); LEUKOCYTE ESTERASE ,URINE NEGATIVE (Neg); NITRITES, URINE NEGATIVE (Neg); OCCULT BLOOD,URINE SMALL (Neg); PH,URINE 5.5 (4.8-8.0); PROTEIN,URINE NEGATIVE (Neg); UROBILINOGEN,URINE 0.2 E.U/dL (0.2-1.0)
[2019-02-05 12:48] LABS: UA COLLECTION TYPE CLN CATCH MIDSTREAM
[2019-02-05 12:49] LABS: MUCUS STRANDS FEW /LPF (Neg); SQUAMOUS EPITHELIAL CELL,UR FEW /LPF (FEW)
[2019-02-05 12:50] LABS: BACTERIA,URINE 1+ /HPF (Neg); RBC,URINE 0-2 /HPF (0-2); WBC,URINE 0-4 /HPF (0-4)
[2019-02-08 05:16] LABS: TESTOSTERONE, FREE, DIRECT 5.3 pg/mL (6.6-18.1)
== END 2019-02-05 23:59 | disposition home or self-care (01) ==
LOC: LAB 11:00
PROVIDERS: ATTEND Family Medicine
DX: S98.131A Complete traumatic amputation of one right lesser toe, initial encounter (principal); E11.9 Type 2 diabetes mellitus without complications; K21.9 Gastro-esophageal reflux disease without esophagitis; N40.0 Benign prostatic hyperplasia without lower urinary tract symptoms
CPT/HCPCS: 36415; 80053; 80061; 81001; 83036; 84402; 84403; 84439; 84443; 85025

== ENCOUNTER 2019-02-25 09:00 | Day surgery (SDC) | payer MEDICARE, MEDICAID ==
[2019-02-25] MEDS ORDERED: LIDOcaine 2% 5ml jelly ONE (09:34)
== END 2019-02-25 11:05 | disposition home or self-care (01) ==
LOC: WOUND CARE 09:00
PROVIDERS: ATTEND Surgery
DX: T87.89 Other complications of amputation stump (principal); E11.621 Type 2 diabetes mellitus with foot ulcer; L97.412 Non-pressure chronic ulcer of right heel and midfoot with fat layer exposed; L97.512 Non-pressure chronic ulcer of other part of right foot with fat layer exposed; E11.65 Type 2 diabetes mellitus with hyperglycemia; E11.42 Type 2 diabetes mellitus with diabetic polyneuropathy; E11.69 Type 2 diabetes mellitus with other specified complication; M86.8X7 Other osteomyelitis, ankle and foot; E11.22 Type 2 diabetes mellitus with diabetic chronic kidney disease; I12.9 Hypertensive chronic kidney disease with stage 1 through stage 4 chronic kidney disease, or unspecified chronic kidney disease; N18.9 Chronic kidney disease, unspecified; E78.5 Hyperlipidemia, unspecified; Z96.643 Presence of artificial hip joint, bilateral; Z96.653 Presence of artificial knee joint, bilateral; Z79.4 Long term (current) use of insulin; Z79.899 Other long term (current) drug therapy; Z89.422 Acquired absence of other left toe(s); Y83.5 Amputation of limb(s) as the cause of abnormal reaction of the patient, or of later complication, without mention of misadventure at the time of the procedure
CPT/HCPCS: 11042; 36416; 82948; A6209; A4663; A6021; A6154; A6446

== ENCOUNTER 2019-04-21 08:30 | Outpatient (CLI) | payer MEDICARE, MEDICAID | END 2019-04-21 11:26 | disposition home or self-care (01) | LOC: WOUND CARE 08:30 → EDSTATUS 08:30 → WOUND CARE 11:26 | PROVIDERS: ATTEND Surgery | DX: T87.89 Other complications of amputation stump (principal); E11.621 Type 2 diabetes mellitus with foot ulcer; L97.512 Non-pressure chronic ulcer of other part of right foot with fat layer exposed; L97.412 Non-pressure chronic ulcer of right heel and midfoot with fat layer exposed; E11.65 Type 2 diabetes mellitus with hyperglycemia; E11.42 Type 2 diabetes mellitus with diabetic polyneuropathy; E11.69 Type 2 diabetes mellitus with other specified complication; M86.8X7 Other osteomyelitis, ankle and foot; E11.22 Type 2 diabetes mellitus with diabetic chronic kidney disease; I12.9 Hypertensive chronic kidney disease with stage 1 through stage 4 chronic kidney disease, or unspecified chronic kidney disease; N18.9 Chronic kidney disease, unspecified; E78.5 Hyperlipidemia, unspecified; F17.200 Nicotine dependence, unspecified, uncomplicated; Z96.643 Presence of artificial hip joint, bilateral; Z96.653 Presence of artificial knee joint, bilateral; Z79.4 Long term (current) use of insulin; Z89.422 Acquired absence of other left toe(s); Z79.899 Other long term (current) drug therapy; Y83.5 Amputation of limb(s) as the cause of abnormal reaction of the patient, or of later complication, without mention of misadventure at the time of the procedure | CPT/HCPCS: 36416; 82948; G0463; A4663; A6212 ==